=== PATIENT | male | born 1945 | race Caucasian/White ===

== ENCOUNTER → 2017-02-18 | Outpatient (CLI) | payer BC, OTHER ==
[~2017-02-18] VITALS: Ht 170.2 cm; Wt 88.2 kg
[~2017-02-18] MED LIST: ALL300 PO; ASPEC81 PO; ATV5 PO; CMD5 PO; CRDCD120 PO; FLM4 PO; METO100T14 PO; SIMV40TA2
[2017-02-18 15:21] VITALS: BP 114/77; PULSE 120; Ht 170.2 cm; Wt 88.2 kg
== END | disposition home or self-care (01) ==
LOC: C.NEUR 14:52
PROVIDERS: ATTEND Physician Assistant
DX: G47.33 Obstructive sleep apnea (adult) (pediatric) (principal); G47.31 Primary central sleep apnea

== ENCOUNTER → 2017-04-04 | Outpatient (CLI) | payer BC | END | disposition home or self-care (01) | LOC: C.RDSM 14:22 | PROVIDERS: ATTEND Physical Medicine & Rehabilitation Sports Medicine | DX: Z96.643 Presence of artificial hip joint, bilateral (principal) ==

== ENCOUNTER → 2017-04-05 | Outpatient (CLI) | payer BC ==
[2017-04-05 09:32] LABS: BASO % 0.3 %; BASO ABS # 0.01 K/uL (0-0.2); COMPLETE YES; EOS % 3.5 %; HEMATOCRIT 43.4 % (42-52); IG% 0.3 %; LYMPH % 31.9 %; LYMPH ABS # 1.26 K/uL (1.2-3.4); MEAN CELL VOLUME 93.5 fL (80-100); MEAN CORPUSCULAR HEMOGLOBIN 32.3 pg (25-34); MEAN CORPUSCULAR HGB CONC 34.6 g/dl (32-36); MEAN PLATELET VOLUME 10.1 fL (7.4-10.4); MONO % 9.9 %; NEUT % 54.1 %; PLATELET COUNT 139 K/uL (130-400); RED BLOOD COUNT 4.64 M/uL (4.7-6.1); WHITE BLOOD COUNT 3.95 K/uL (4.8-10.8)
[2017-04-05 09:42] LABS: ALT/SGPT 39 U/L (12-78); AST/SGOT 16 U/L (15-37); BLOOD UREA NITROGEN 19 mg/dl (7-18); BUN/CREATININE RATIO 12.1 (10-20); CARBON DIOXIDE 23 mmol/L (21-32); CHLORIDE 109 mmol/L (98-107); CHOLESTEROL 137 mg/dl (0-200); GLUCOSE 103 mg/dl (70-99); MAGNESIUM 2.2 mg/dl (1.8-2.4); POTASSIUM 4.3 mmol/L (3.5-5.1); SODIUM 143 mmol/L (136-145)
[2017-04-05 09:52] LABS: CHOLESTEROL/HDL RATIO 3.4; HDL CHOLESTEROL 40 mg/dl; LDL CHOLESTEROL CALCULATED 61 mg/dl; TRIGLYCERIDES 182 mg/dl (0-150); VERY LOW DENSITY LIPOPROT CALC 36 mg/dl
[2017-04-05 09:54] LABS: CALCIUM 8.9 mg/dl (8.5-10.1)
[2017-04-05 10:29] LABS: ESTIMATED AVERAGE GLUCOSE 108 mg/dl; HA1C FLAG Normal (Normal)
== END | disposition home or self-care (01) ==
LOC: C.LAB1850 07:27
PROVIDERS: ATTEND Internal Medicine
DX: E78.5 Hyperlipidemia, unspecified (principal)

== ENCOUNTER → 2017-09-09 | Outpatient (CLI) | payer BC ==
[2017-09-09 13:40] LABS: BASO % 0.5 %; BASO ABS # 0.02 K/uL (0-0.2); COMPLETE YES; EOS % 3.4 %; HEMATOCRIT 42.5 % (42-52); IG% 0.2 %; LYMPH % 14.8 %; LYMPH ABS # 0.65 K/uL (1.2-3.4); MEAN CELL VOLUME 97.5 fL (80-100); MEAN CORPUSCULAR HEMOGLOBIN 33.9 pg (25-34); MEAN CORPUSCULAR HGB CONC 34.8 g/dl (32-36); MEAN PLATELET VOLUME 10.4 fL (7.4-10.4); NEUT % 74.1 %; PLATELET COUNT 153 K/uL (130-400); RED BLOOD COUNT 4.36 M/uL (4.7-6.1)
[2017-09-09 14:02] LABS: ALT/SGPT 46 U/L (12-78); BLOOD UREA NITROGEN 13 mg/dl (7-18); BUN/CREATININE RATIO 8.9 (10-20); CALCIUM 8.8 mg/dl (8.5-10.1); CARBON DIOXIDE 22 mmol/L (21-32); CHLORIDE 106 mmol/L (98-107); CREATININE 1.49 mg/dl (0.60-1.40); GLUCOSE 150 mg/dl (70-99); POTASSIUM 4.8 mmol/L (3.5-5.1); SODIUM 140 mmol/L (136-145)
[2017-09-09 14:12] LABS: ALB/GLOB RATIO 1.2 (0.9-2); ALKALINE PHOSPHATASE 152 U/L (45-117); AST/SGOT 28 U/L (15-37)
== END | disposition home or self-care (01) ==
LOC: C.LABBC 09:44
PROVIDERS: ATTEND Internal Medicine Geriatric Medicine
DX: N18.9 Chronic kidney disease, unspecified (principal); I48.2 Chronic atrial fibrillation; F41.9 Anxiety disorder, unspecified

== ENCOUNTER → 2017-09-29 | Outpatient (CLI) | payer BC ==
[2017-09-29 10:55] LABS: ALT/SGPT 38 U/L (12-78); AST/SGOT 22 U/L (15-37); BLOOD UREA NITROGEN 17 mg/dl (7-18); BUN/CREATININE RATIO 12.3 (10-20); CALCIUM 8.7 mg/dl (8.5-10.1); CARBON DIOXIDE 24 mmol/L (21-32); CHLORIDE 109 mmol/L (98-107); CHOLESTEROL 112 mg/dl (0-200); CREATININE 1.38 mg/dl (0.60-1.40); GLUCOSE 99 mg/dl (70-99); POTASSIUM 4.4 mmol/L (3.5-5.1); SODIUM 140 mmol/L (136-145); TRIGLYCERIDES 173 mg/dl (0-150); VERY LOW DENSITY LIPOPROT CALC 35 mg/dl
[2017-09-29 11:00] LABS: HDL CHOLESTEROL 37 mg/dl; LDL CHOLESTEROL CALCULATED 40 mg/dl
== END | disposition home or self-care (01) ==
LOC: C.LABBC 09:02
PROVIDERS: ATTEND Internal Medicine
DX: E78.5 Hyperlipidemia, unspecified (principal); R74.8 Abnormal levels of other serum enzymes

== ENCOUNTER → 2017-11-14 | Outpatient (CLI) | payer BC ==
--- NOTE | 2017-11-14 16:13 | DIAGNOSTIC IMAGING REPORT ---
RIBS BILATERAL MIN 3 VIEWS CLINICAL HISTORY: W01.0XXA Fall from slip, trip, or [id number] trauma. Pain. COMPARISON STUDY: None FINDINGS: 1. Negative right ribs. 2. Negative left ribs. 3. No acute process of the chest. IMPRESSION: Negative study The above report was generated using voice recognition software. It may contain grammatical, syntax or spelling errors. Electronically signed by: Theodore Solomon M.D. 11/14/2017 4:12 PM Dictated Date/Time: 11/14/2017 4:10 PM
--- NOTE | 2017-11-14 16:22 | DIAGNOSTIC IMAGING REPORT ---
CHEST 2 VIEWS ROUTINE HISTORY: 72 years-old Male W01.0XXA Fall from slip, trip, or [id number] acute chest injury status post fall COMPARISON: None available TECHNIQUE: Rib radiographs of same day FINDINGS: Cardiac silhouette is mildly enlarged. Atherosclerosis of the aorta. Lungs are mildly hyperinflated. No pneumothorax, pleural effusion, focal airspace consolidation or overt pulmonary edema. Bones of the chest appear grossly intact. Degenerative changes are seen within the shoulders and spine. IMPRESSION: Cardiomegaly without acute process. The above report was generated using voice recognition software. It may contain grammatical, syntax or spelling errors. Electronically signed by: Ezekiel Larose M.D. 11/14/2017 4:21 PM Dictated Date/Time: 11/14/2017 4:19 PM
== END | disposition home or self-care (01) ==
LOC: C.RADBC 15:34
PROVIDERS: ATTEND Internal Medicine Geriatric Medicine
DX: R07.9 Chest pain, unspecified (principal); W01.0XXA Fall on same level from slipping, tripping and stumbling without subsequent striking against object, initial encounter

== ENCOUNTER → 2018-02-21 | Outpatient (CLI) | payer BC ==
[~2018-02-21] VITALS: Ht 170.2 cm; Wt 88.4 kg
[2018-02-21 14:39] VITALS: BP 95/61; PULSE 84; Ht 170.2 cm; Wt 88.4 kg
== END | disposition home or self-care (01) ==
LOC: C.NEUR 13:50
PROVIDERS: ATTEND Internal Medicine Pulmonary Disease
DX: G47.33 Obstructive sleep apnea (adult) (pediatric) (principal); G47.31 Primary central sleep apnea; I25.10 Atherosclerotic heart disease of native coronary artery without angina pectoris; I48.2 Chronic atrial fibrillation

== ENCOUNTER 2020-12-31 00:40 | Observation (INO) ==
--- NOTE | 2020-12-31 01:10 | Emergency Department Note ---
Impression & Plan Syncope and collapse, Amnesia ED Provider Note Name: EMILY MEAD Age: 75 Sex: M Arrives Via: Walk-In Informant: Patient, ED Provider: Clemente Alcaraz MD Chief Complaint: fall Impression: Syncope and Collapse Amnesia Medical Decision Makin yr old pleasant male with history afib on eliquis along with dlp, ckd, bph, anxiety, isabel arrives after a 1 hour episode of memory loss following syncope/collapse on the stairs. No evidence of head injury on exam though with eliquis use ct indicated which was negative. He has no neuro deficits and memory has returned on arrival thus no indication for stroke alert. EKG with afib though no acs. He is no sob, cp, hypoxia nor tachy thus I feel PE unlikely, especially given his eliquis use. Labs unremarkable including negative trop. He admits ETOH use consistent with lab findings. Unclear etiology of fall/syncope though would suspect some orthostatic hypotension, though this doesn't qutie explain memory issues for an hour after initial event. Will bring in for further monitoring and evaluation. Prior Medical Record and Triage/Nursing Notes reviewed by Me Additional history obtained from chart and Differentials:Vasovagal event, dehydration, infection, hypoglycemia, electrolyte abnormalities, cardiac sources, intracerebral event, pulmonary embolism, seizure, toxicologic, neurologic, as well as other pathologies. Vital Signs: reviewed and remarkable for no significant abnormalities Interventions: none Labs:Reviewed and remarkable for +etoh Imaging:[facility] Radiologist interpretation reviewed by me: ct head/cervical no acute findings X ray results are stated below per my interpretation: Chest: 1 view: No infiltrate, no effusion, normal cardiac border. Pelvis: Bilateral hip replacements intact, no acute fracture/dislocation EKG:Per My Interpretation: Indication Syncope: Afib 84 bpm, qtc 451. No Ischemia. Compared to EKG 06/22/12, no significant changes. Cardiac/Tele Monitoring: Cardiac Monitoring: An Order was placed for continuous cardiac monitoring. The monitor shows a rate of 80 with a afib rhythm. Consults:Dr Nessa ALBARADO Hospitalist Plan: Disposition:Hospitalization. Condition: Good Prescriptions:none History of Present Illness:75 yr old male arrives for evaluation of syncope. Patient went to bed a bit later than and she notes she hear a loud commotion at stairs. She immeidately went to stairs and found at bottom of them. It was apparent that he had fallen down entire flight, though no evidence of head injury by exam. She notes he was awake but confused on evaluating him. He does not remember falling though states he vaguely remembers walking up stairs. Per he had amnesia to events today for about 1 hr before his member started coming back. He was unable to remember what his normal medications were at that time nor what he had done that day. He had small abrasion to right heal that she placed abx ointment on and dressed. Given continued confusion brought him to ED. She notes he is now back to his normal baseline. Patient admits etoh earlier in evening. Currently he notes some mild right chest soreness otherwise no discomfort. Denies headache, neck pain, cp, nausea, vomiting, sob, back pain, abdominal pain, urinary symptoms, diarrhea, leg swelling, rashes, nor other symptoms. Denies falls nor previous syncope. Is on eliquis for afib. No medications taken regarding fall/injury. Nothing makes better nor worse. ROS: See above HPI for pertinent positives & negatives. A total of 10 systems reviewed and were otherwise negative. Past Medical History:Afib, BPH, ISAEBL, Anxiety, CAD, Hyperlipidemia Past Surgical History:Bilateral hips, Appendectomy Family History:CAD, CVA, HTN Social History:lives with , plays pickleball, drinks etoh nightly Home Medications:See Below Allergies:PNC, Codeine Vitals:Blood Pressure: 115/71, Pulse 87, RR 18, T 35.6C, O2 95% on RA Physical Exam: GENERAL: Patient is tired appearing and in mininal distress. EYES: No scleral icterus, unremarkable pupils. ENT: Mucous membranes moist, no nasal congestion. HEAD: AT/NC CHEST: TTP very mild right anterior ribs NECK: No masses appreciated, nomeningismus, trachea is midline. RESPIRATORY: No dyspnea. Clear to auscultation and equal bilaterally. No wheeze, no rhonchi. CARDIOVASCULAR: Regular rate and rhythm.No murmurs, rubs, gallops appreciated. GASTROINTESTINAL: Abdomen soft, non-tender, no peritonitis.Bowel sounds positive.No masses appreciated. BACK: No midline tenderness, no CVA tenderness EXTREMITIES: Normal motion all extremities, no cyanosis, no edema. NEUROLOGIC: Alert and oriented, no acute motor or sensory deficits, no focal weakness, cranial nerves grossly intact. SKIN: Abrasion right heal, No rash, no jaundice, no diaphoresis. PSYCH: Appropriate GCS: 15 ED Course: Times/Reassessments: Stable, neuro intact, afib on monitor throughout without other findings Clemente Alcaraz MD Past Med/Surg History Medical History (Updated 12/31/20 @ 04:04 by Clemente Alcaraz MD) Afib Anxiety Benign prostatic hyperplasia Central sleep apnea Chronic kidney disease Cigar smoker Elevated alkaline phosphatase level Ganglion cyst Gout, joint Hyperlipidemia LDL goal <70 Leukopenia Permanent atrial fibrillation Skin cancer, basal cell Vitamin D deficiency Surgical History History of arthroscopic knee surgery S/P appendectomy S/P bilateral hip replacements S/P vasectomy Family History Heart disease Mother Hypertension Mother Stroke Mother Social History Smoking Status: Never smoker Hx Alcohol Use: Yes Alcohol Intake Frequency Comment: 20 per week Hx Substance Use: No Preferred Language: Latvian marital status: current occupational status: 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 have: 2 Feels Safe at Home: Yes Allergies Allergies Allergy/AdvReac Type Severity Reaction Status Date / Time Penicillins Allergy Unknown RASH Verified 12/31/20 01:06 codeine AdvReac Unknown NAUSEA & Verified 12/31/20 01:06 VOMITING Home Meds Home Medications Medication Instructions Recorded Confirmed cetirizine 10 mg tablet 10 mg PO HS tab 07/17/19 12/31/20 cholecalciferol (vitamin D3) 50 3,000 units PO QAM cap 07/17/19 12/31/20 mcg (2,000 unit) capsule acetaminophen [Tylenol Extra 1,000 mg PO Q6H PRN 11/24/19 12/31/20 Strength] Previous Rx's Medication Instructions Recorded escitalopram oxalate 20 mg tablet 20 mg PO QAM #90 tab 07/14/20 metoprolol succinate 25 mg 25 mg PO .COMPLEX #225 tab 10/24/20 tablet,extended release 24 hr apixaban 5 mg tablet 5 mg PO BID #180 tab 11/04/20 allopurinol 300 mg tablet 150 mg PO QAM #45 tab 11/10/20 atorvastatin 40 mg tablet 40 mg PO HS #90 tab 11/10/20 tamsulosin 0.4 mg capsule 0.4 mg PO HS #90 cap 11/21/20 diltiazem HCl 120 mg 120 mg PO QAM #90 cap 12/09/20 capsule,extended release 24 hr Results & Data (ED) Vital Signs Vital Signs - 24 hr 12/31/20 00:41 12/31/20 00:42 12/31/20 00:54 Temperature 35.6 C L Temperature Source Temporal Artery Scan Pulse Rate 87 84 Pulse Rate from SpO2 Sensor 83 Respiratory Rate 16 18 13 Respiratory Effort / Characteristics Non-Labored Spontaneous Respiratory Depth Normal Normal Respiratory Pattern Regular Blood Pressure 115/71 120/74 Blood Pressure Mean 85 89 Blood Pressure Position Sitting Pulse Oximetry 95 94 Oxygen Delivery Method Room Air Room Air Room Air Sepsis Recent Fever Within 48 Hours No Sepsis New/Unexplained Change in Mental Status No Sepsis Action Taken by Nursing No Action Required 12/31/20 02:14 12/31/20 02:30 12/31/20 03:00 Temperature Temperature Source Pulse Rate 83 81 92 H Pulse Rate from SpO2 Sensor 82 84 87 Respiratory Rate 21 17 17 Respiratory Effort / Characteristics Respiratory Depth Respiratory Pattern Blood Pressure 98/51 L 105/70 117/59 L Blood Pressure Mean 66 81 78 Blood Pressure Position Pulse Oximetry 95 97 94 Oxygen Delivery Method Room Air Room Air Room Air Sepsis Recent Fever Within 48 Hours Sepsis New/Unexplained Change in Mental Status Sepsis Action Taken by Nursing 12/31/20 03:30 12/31/20 04:00 Temperature Temperature Source Pulse Rate 81 80 Pulse Rate from SpO2 Sensor 83 79 Respiratory Rate 14 17 Respiratory Effort / Characteristics Respiratory Depth Respiratory Pattern Blood Pressure 107/67 112/77 Blood Pressure Mean 80 88 Blood Pressure Position Pulse Oximetry 96 94 Oxygen Delivery Method Room Air Room Air Sepsis Recent Fever Within 48 Hours Sepsis New/Unexplained Change in Mental Status Sepsis Action Taken by Nursing Laboratory Data Result diagrams: 12/31/20 01:05 12/31/20 01:05 Lab Results 12/31/20 12/31/20 12/31/20 Range/Units 01:05 01:05 01:05 WBC 4.41 L (4.8-10.8) K/uL RBC 4.01 L (4.7-6.1) M/uL Hgb 14.1 (14.0-18.0) g/dL Hct 38.9 L (42-52) % MCV 97.0 (80-100) fL MCH 35.2 H (25-34) pg MCHC 36.2 H (32-36) g/dL RDW Std Deviation 45.7 (36.4-46.3) fL RDW Coeff of Stefany 12.9 (11.5-14.5) % Plt Count 133 (130-400) K/uL MPV 9.6 (7.4-10.4) fL Immature Gran % (Auto) 0.2 % Neut % (Auto) 60.3 % Lymph % (Auto) 25.2 % [place] % (Auto) 11.6 % Eos % (Auto) 2.7 % Baso % (Auto) 0.0 % Neut # (Auto) 2.66 (1.4-6.5) K/uL Lymph # (Auto) 1.11 L (1.2-3.4) K/uL [place] # (Auto) 0.51 (0.11-0.59) K/uL Eos # (Auto) 0.12 (0-0.5) K/uL Baso # (Auto) 0.00 (0-0.2) K/uL Immature Gran # (Auto) 0.01 (0.00-0.02) K/uL PT 10.3 (9.0-12.0) Seconds INR 1.0 (0.9-1.1) APTT 29.3 (21.0-31.0) Seconds PTT Ratio 1.1 Sodium 140 (136-145) mmol/L Potassium 4.0 (3.5-5.1) mmol/L Chloride 108 H (98-107) mmol/L Carbon Dioxide 23 (21-32) mmol/L Anion Gap 9.0 (3-11) BUN 25 H (7-18) mg/dl Creatinine 1.40 (0.6-1.4) mg/dl Est Cr Clr Drug Dosing 49.2 ml/min Est GFR ( Amer) 56.6 Est GFR (Non-Af Amer) 48.8 BUN/Creatinine Ratio 17.7 (10-20) Glucose 105 H (70-99) mg/dl Calcium 8.5 (8.5-10.1) mg/dl Magnesium 1.9 (1.8-2.4) mg/dl Total Bilirubin 0.6 (0.2-1) mg/dl Direct Bilirubin 0.1 (0-0.2) mg/dl AST 24 (15-37) U/L ALT 43 (12-78) U/L Alkaline Phosphatase 105 (45-117) U/L Troponin I < 0.015 (0-0.045) ng/ml Total Protein 6.7 (6.4-8.2) gm/dl Albumin 3.6 (3.4-5.0) gm/dl Urine Color Urine Appearance (Clear) Urine pH (4.5-7.5) Ur Specific [place] (1.000-1.030) Urine Protein (Negative) Urine Glucose (UA) (Negative) Urine Ketones (Negative) Urine Blood (Negative) Urine Nitrite (Negative) Urine Bilirubin (Negative) Urine Urobilinogen (Negative) Ur Leukocyte Esterase (Negative) Ethyl Alcohol mg/dL (0-3) mg/dl COVID-19 Eval Order SARS-CoV-2, RNA, NAAT (NEGATIVE) 12/31/20 12/31/20 12/31/20 Range/Units 01:23 01:44 01:44 WBC (4.8-10.8) K/uL RBC (4.7-6.1) M/uL Hgb (14.0-18.0) g/dL Hct (42-52) % MCV (80-100) fL MCH (25-34) pg MCHC (32-36) g/dL RDW Std Deviation (36.4-46.3) fL RDW Coeff of Stefany (11.5-14.5) % Plt Count (130-400) K/uL MPV (7.4-10.4) fL Immature Gran % (Auto) % Neut % (Auto) % Lymph % (Auto) % [place] % (Auto) % Eos % (Auto) % Baso % (Auto) % Neut # (Auto) (1.4-6.5) K/uL Lymph # (Auto) (1.2-3.4) K/uL [place] # (Auto) (0.11-0.59) K/uL Eos # (Auto) (0-0.5) K/uL Baso # (Auto) (0-0.2) K/uL Immature Gran # (Auto) (0.00-0.02) K/uL PT (9.0-12.0) Seconds INR (0.9-1.1) APTT (21.0-31.0) Seconds PTT Ratio Sodium (136-145) mmol/L Potassium (3.5-5.1) mmol/L Chloride (98-107) mmol/L Carbon Dioxide (21-32) mmol/L Anion Gap (3-11) BUN (7-18) mg/dl Creatinine (0.6-1.4) mg/dl Est Cr Clr Drug Dosing ml/min Est GFR ( Amer) Est GFR (Non-Af Amer) BUN/Creatinine Ratio (10-20) Glucose (70-99) mg/dl Calcium (8.5-10.1) mg/dl Magnesium (1.8-2.4) mg/dl Total Bilirubin (0.2-1) mg/dl Direct Bilirubin (0-0.2) mg/dl AST (15-37) U/L ALT (12-78) U/L Alkaline Phosphatase (45-117) U/L Troponin I (0-0.045) ng/ml Total Protein (6.4-8.2) gm/dl Albumin (3.4-5.0) gm/dl Urine Color Urine Appearance (Clear) Urine pH (4.5-7.5) Ur Specific [place] (1.000-1.030) Urine Protein (Negative) Urine Glucose (UA) (Negative) Urine Ketones (Negative) Urine Blood (Negative) Urine Nitrite (Negative) Urine Bilirubin (Negative) Urine Urobilinogen (Negative) Ur Leukocyte Esterase (Negative) Ethyl Alcohol mg/dL 129.0 H (0-3) mg/dl COVID-19 Eval [facility] SARS-CoV-2, RNA, NAAT NEGATIVE (NEGATIVE) 12/31/20 Range/Units 02:05 WBC (4.8-10.8) K/uL RBC (4.7-6.1) M/uL Hgb (14.0-18.0) g/dL Hct (42-52) % MCV (80-100) fL MCH (25-34) pg MCHC (32-36) g/dL RDW Std Deviation (36.4-46.3) fL RDW Coeff of Stefany (11.5-14.5) % Plt Count (130-400) K/uL MPV (7.4-10.4) fL Immature Gran % (Auto) % Neut % (Auto) % Lymph % (Auto) % [place] % (Auto) % Eos % (Auto) % Baso % (Auto) % Neut # (Auto) (1.4-6.5) K/uL Lymph # (Auto) (1.2-3.4) K/uL [place] # (Auto) (0.11-0.59) K/uL Eos # (Auto) (0-0.5) K/uL Baso # (Auto) (0-0.2) K/uL Immature Gran # (Auto) (0.00-0.02) K/uL PT (9.0-12.0) Seconds INR (0.9-1.1) APTT (21.0-31.0) Seconds PTT Ratio Sodium (136-145) mmol/L Potassium (3.5-5.1) mmol/L Chloride (98-107) mmol/L Carbon Dioxide (21-32) mmol/L Anion Gap (3-11) BUN (7-18) mg/dl Creatinine (0.6-1.4) mg/dl Est Cr Clr Drug Dosing ml/min Est GFR ( Amer) Est GFR (Non-Af Amer) BUN/Creatinine Ratio (10-20) Glucose (70-99) mg/dl Calcium (8.5-10.1) mg/dl Magnesium (1.8-2.4) mg/dl Total Bilirubin (0.2-1) mg/dl Direct Bilirubin (0-0.2) mg/dl AST (15-37) U/L ALT (12-78) U/L Alkaline Phosphatase (45-117) U/L Troponin I (0-0.045) ng/ml Total Protein (6.4-8.2) gm/dl Albumin (3.4-5.0) gm/dl Urine Color Yellow Urine Appearance Clear (Clear) Urine pH 5.5 (4.5-7.5) Ur Specific [place] 1.015 (1.000-1.030) Urine Protein Negative (Negative) Urine Glucose (UA) Negative (Negative) Urine Ketones Trace H (Negative) Urine Blood Negative (Negative) Urine Nitrite Negative (Negative) Urine Bilirubin Negative (Negative) Urine Urobilinogen Negative (Negative) Ur Leukocyte Esterase Negative (Negative) Ethyl Alcohol mg/dL (0-3) mg/dl COVID-19 Eval Order SARS-CoV-2, RNA, NAAT (NEGATIVE) Discharge Plan Visit Data Chief Complaint: Fall Stated Complaint: FELL DOWN STAIRS-DOES NOT REMEMBER ANYTHING ED Provider: Clemente Alcaraz Discharge Problem: Syncope and collapse, Amnesia Forms Stand Alone Forms: My [facility] Prescriptions Prescriptions: No Action cetirizine [Zyrtec] 10 mg tablet 10 mg PO HS RF: 0 cholecalciferol (vitamin D3) 2,000 unit capsule 3,000 units PO QAM RF: 0 escitalopram oxalate 20 mg tablet 20 mg PO QAM Qty: 90 RF: 3 metoprolol succinate 25 mg tablet extended release 24 hr 25 mg PO .COMPLEX Qty: 225 RF: 3 apixaban 5 mg tablet 5 mg PO BID Qty: 180 RF: 3 allopurinol 300 mg tablet 150 mg PO QAM Qty: 45 RF: 3 atorvastatin 40 mg tablet 40 mg PO HS Qty: 90 RF: 3 tamsulosin 0.4 mg capsule 0.4 mg PO HS Qty: 90 RF: 3 diltiazem HCl [Cartia XT] 120 mg capsule,extended release 24hr 120 mg PO QAM Qty: 90 RF: 3 acetaminophen [Tylenol Extra Strength] 500 mg Tablet 1,000 mg PO Q6H PRN (Reason: Pain) RF: 0
[2020-12-31 01:20] LABS: Eosinophils # (auto) 0.12 K/uL (0-0.5); Eosinophils % (auto) 2.7 %; Hematocrit (blood only) 38.9 % (42-52); Hemoglobin 14.1 g/dL (14.0-18.0); Immature Granulocytes # (auto) 0.01 K/uL (0.00-0.02); Immature Granulocytes % (auto) 0.2 %; Lymphocytes # (auto) 1.11 K/uL (1.2-3.4); Lymphocytes % (auto) 25.2 %; Mean Corpuscular Hemoglobin 35.2 pg (25-34); Mean Corpuscular Hgb Conc 36.2 g/dL (32-36); Mean Platelet Volume 9.6 fL (7.4-10.4); Monocytes # (auto) 0.51 K/uL (0.11-0.59); Monocytes % (auto) 11.6 %; Neutrophils # (auto) 2.66 K/uL (1.4-6.5); Neutrophils % (auto) 60.3 %; Platelet Count 133 K/uL (130-400); RDW Coefficient of Variation 12.9 % (11.5-14.5); RDW Standard Deviation 45.7 fL (36.4-46.3); Red Blood Count 4.01 M/uL (4.7-6.1); White Blood Count 4.41 K/uL (4.8-10.8)
[2020-12-31 01:30] LABS: Partial Thromboplastin Ratio 1.1; Partial Thromboplastin Time 29.3 Seconds (21.0-31.0); Prothrombin Time 10.3 Seconds (9.0-12.0)
[2020-12-31 01:48] LABS: Alanine Aminotransferase 43 U/L (12-78); Albumin Level 3.6 gm/dl (3.4-5.0); Aspartate Aminotransferase 24 U/L (15-37); BUN Creatinine Ratio 17.7 (10-20); Bilirubin Direct 0.1 mg/dl (0-0.2); Blood Urea Nitrogen 25 mg/dl (7-18); Calcium 8.5 mg/dl (8.5-10.1); Carbon Dioxide 23 mmol/L (21-32); Chloride 108 mmol/L (98-107); Creatinine Clr Calc Pharmacy 49.2 ml/min; Est GFR (African American) 56.6; Est GFR (Non-African American) 48.8; Glucose 105 mg/dl (70-99); Magnesium 1.9 mg/dl (1.8-2.4); Sodium 140 mmol/L (136-145)
[2020-12-31 01:53] LABS: Alkaline Phosphatase 105 U/L (45-117); Bilirubin,Total 0.6 mg/dl (0.2-1); Total Protein 6.7 gm/dl (6.4-8.2); Troponin I < 0.015 ng/ml (0-0.045)
[2020-12-31 02:28] LABS: Appearance Urine Clear (Clear); Bilirubin Urine Negative (Negative); Blood Urine Negative (Negative); Color Urine Yellow; Glucose Urine UA Negative (Negative); Ketones Urine Trace (Negative); Leukocyte Esterase Urine Negative (Negative); Nitrite Urine Negative (Negative); Protein Urine Negative (Negative); Specific Gravity Urine 1.015 (1.000-1.030); Urobilinogen Urine Negative (Negative); pH Urine 5.5 (4.5-7.5)
--- NOTE | 2020-12-31 03:23 | History & Physical Report ---
Date of Service December 31, 2020 Assessment & Plan (1) Alcohol intoxication: 75 yo M with hx gout, sleep apnea, afib, CKD, OA admitted for alcohol intoxication and fall. Fall - secondary to alcohol intoxication - had a total of 6 shots of vodka around 5 pm, followed by 3 10-12 ounce full glasses of box wine later in the evening - he remembers getting up to go up the stairs but does not remember tripping/falling down. He then recalls being upstairs but does not remember how he got there - states he did not hit his head when she found him. CT head negative - XR pelvic and Chest negative for fracture, pneumothorax Alcohol Dependence, precontemplative - CAGE positive: considers cutting back, annoyed by asked about drinking habits - acknowledges that his children call him a functional alcoholic - states he is a 4 on scale for change (0 = will not consider cutting back, 10 = will cut back now) - says he would be a 5 if I told him he would within the year due to his drinking - believes that a reasonable goal for cutting back would be having 2 days per week that he does not drink - Discussed with him that alcohol abuse to this level while on a blood thinner is incredibly dangerous especially with falls, and that the alcohol will likely cause him to have kidney/liver damage eventually or contribute to him having a seriously damaging fall. He agreed that he "should probably cut back" but does not give the impression of being invested. Alcohol intoxication - AWSS protocol - Hg 14, MCV normal - Vit B12 and folate level ordered - banana bag x 1, daily thiamine, folate, b12 - ETOH level in ER 189 DVT ppx: on eliquis 5 bid FEN/GI: cardiac diet Full Code Dispo: Med Surg (2) Gout, joint: (3) Complex sleep apnea syndrome: (4) Benign prostatic hyperplasia: (5) Chronic kidney disease: (6) Permanent atrial fibrillation: (7) Osteoarthritis: (8) Non-occlusive coronary artery disease: History of Present Illness Primary Care Provider: Jeyson Cee MD Allergies Allergy/AdvReac Type Severity Reaction Status Date / Time Penicillins Allergy Unknown RASH Verified 12/31/20 01:06 codeine AdvReac Unknown NAUSEA & Verified 12/31/20 01:06 VOMITING Home Medications Medication Instructions Recorded Confirmed Type cetirizine 10 mg tablet 10 mg PO HS tab 07/17/19 12/31/20 History cholecalciferol (vitamin D3) 50 3,000 units PO QAM cap 07/17/19 12/31/20 History mcg (2,000 unit) capsule acetaminophen [Tylenol Extra 1,000 mg PO Q6H PRN 11/24/19 12/31/20 History Strength] escitalopram oxalate 20 mg tablet 20 mg PO QAM #90 tab 07/14/20 12/31/20 Rx metoprolol succinate 25 mg 25 mg PO .COMPLEX #225 tab 10/24/20 12/31/20 Rx tablet,extended release 24 hr apixaban 5 mg tablet 5 mg PO BID #180 tab 11/04/20 12/31/20 Rx allopurinol 300 mg tablet 150 mg PO QAM #45 tab 11/10/20 12/31/20 Rx atorvastatin 40 mg tablet 40 mg PO HS #90 tab 11/10/20 12/31/20 Rx tamsulosin 0.4 mg capsule 0.4 mg PO HS #90 cap 11/21/20 12/31/20 Rx diltiazem HCl 120 mg 120 mg PO QAM #90 cap 12/09/20 12/31/20 Rx capsule,extended release 24 hr Past Med/Surg History Medical History (Updated 12/31/20 @ 04:24 by Angela Early MD) Afib Alcohol dependence Anxiety Benign prostatic hyperplasia Central sleep apnea Chronic kidney disease Cigar smoker Elevated alkaline phosphatase level Ganglion cyst Gout, joint Hyperlipidemia LDL goal <70 Leukopenia Permanent atrial fibrillation Skin cancer, basal cell Vitamin D deficiency Surgical History History of arthroscopic knee surgery S/P appendectomy S/P bilateral hip replacements S/P vasectomy Family History Heart disease Mother Hypertension Mother Stroke Mother Social History Smoking Status: Light tobacco smoker Second Hand Exposure: No; Hx Alcohol Use: Yes Alcohol type: beer, wine and hard liquor Alcohol Intake Frequency Comment: 20 per week Hx Substance Use: No Preferred Language: Armenian Communication Ability: Effective C 40A Crew Chief Required: No Beliefs That Will Affect Care: None marital status: Current Living Situation: Spouse 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 occupational status: 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 Assessment and Plan: Fall secondary to alcohol intoxication Imaging studies negative for fracture Monitor for any new symptoms Alcohol dependency- Cessation counseling AWSS protocol Thiamine 100 mg p.o. daily Folic acid 1 mg p.o. daily Nephrocaps p.o. twice daily IV fluids Obstructive sleep apnea- as needed at bedtime Remaining orders and notations as noted Resident Activity Tracking Resident Involvement: Resident Care Provided Care Provided: Adult Hospital Medicine
[2020-12-31] MEDS ORDERED: LORazepam 2 MG/4 ML VIAL IV PRN (04:49)
[2020-12-31] MEDS ORDERED: ATIVAN IV ALCOHOL WITHDRAWL IV PRN (04:49)
[2020-12-31] MEDS ORDERED: LORazepam 1 MG/2 ML VIAL IV PRN ×2 (04:49)
[2020-12-31] MEDS ORDERED: LORazepam 3 MG/6 ML VIAL IV PRN (04:49)
[2020-12-31] MEDS ORDERED: LORazepam 1 MG TAB PO PRN ×2 (04:49)
[2020-12-31] MEDS ORDERED: MULTI-VITAMIN INFUSION 10 ML, THIAMINE HCL 100 MG, FOLIC ACID 1 MG in SODIUM CHLORIDE 0... IV ONE (05:30)
[2020-12-31 05:39] LABS: Eosinophils # (auto) 0.09 K/uL (0-0.5); Eosinophils % (auto) 2.6 %; Hematocrit (blood only) 38.4 % (42-52); Immature Granulocytes # (auto) 0.01 K/uL (0.00-0.02); Immature Granulocytes % (auto) 0.3 %; Lymphocytes # (auto) 0.74 K/uL (1.2-3.4); Lymphocytes % (auto) 21.6 %; Mean Corpuscular Hemoglobin 35.2 pg (25-34); Mean Corpuscular Hgb Conc 36.5 g/dL (32-36); Mean Corpuscular Volume 96.5 fL (80-100); Mean Platelet Volume 9.6 fL (7.4-10.4); Monocytes # (auto) 0.27 K/uL (0.11-0.59); Monocytes % (auto) 7.9 %; Neutrophils # (auto) 2.31 K/uL (1.4-6.5); Neutrophils % (auto) 67.6 %; Platelet Count 114 K/uL (130-400); RDW Coefficient of Variation 12.7 % (11.5-14.5); RDW Standard Deviation 44.6 fL (36.4-46.3); Red Blood Count 3.98 M/uL (4.7-6.1); White Blood Count 3.42 K/uL (4.8-10.8)
[2020-12-31 05:49] LABS: Partial Thromboplastin Ratio 1.1; Partial Thromboplastin Time 29.9 Seconds (21.0-31.0); Prothrombin Time 10.4 Seconds (9.0-12.0)
[2020-12-31 05:57] LABS: Albumin Level 3.6 gm/dl (3.4-5.0); BUN Creatinine Ratio 17.4 (10-20); Calcium 8.4 mg/dl (8.5-10.1); Creatinine Clr Calc Pharmacy 53.4 ml/min; Est GFR (Non-African American) 54.4; Potassium 4.3 mmol/L (3.5-5.1)
[2020-12-31 05:59] LABS: Albumin Globulin Ratio 1.2 (0.9-2); Bilirubin,Total 0.7 mg/dl (0.2-1); Globulin 2.9 gm/dl (2.5-4.0); Total Protein 6.5 gm/dl (6.4-8.2)
--- NOTE | 2020-12-31 06:50 | XRay Report ---
XR pelvis 1-2V routine HISTORY: 75 years-old Male fall down stairs acute pelvic pain status post fall COMPARISON: Pelvis and hip radiographs 06/23/2020 TECHNIQUE: AP view of the pelvis FINDINGS: Bilateral hip total joint arthroplasties without evidence of hardware complication. Demineralized tim earance of the bones. Surgical clips project over the scrotum. No acute fracture or dislocation. Unre markable soft tissues. IMPRESSION: No acute fracture. ACT 112: Negative or not required by law. The above report was generated using voice recognition software. It may contain grammatical, syntax o r spelling errors. Electronically signed by: Ezekiel Larose M.D. 12/31/2020 6:49 AM
--- NOTE | 2020-12-31 07:11 | CT Scan Report ---
CT SCAN OF THE CERVICAL SPINE CLINICAL HISTORY: Trauma. Fall down stairs. COMPARISON STUDY: No priors. TECHNIQUE: CT scan of the cervical spine is performed from the skull base to the upper thoracic spine . Images are reviewed in the axial, sagittal, and coronal planes. IV contrast was not administered fo r this examination. A dose lowering technique was utilized adhering to the principles of ALARA. CT DOSE: 998.56 mGy.cm FINDINGS: Skeletal structures: The skeletal structures are osteopenic. There is no evidence of fracture or subl uxation involving the cervical spine. Vertebral body height and alignment are maintained. There is st raightening of the cervical lordosis. Anterior osteophytes are seen throughout. The odontoid process and lateral masses are intact. The atlantoaxial articulation is preserved noting productive degenerat leelee change. The spinous processes appear intact. There is [id number] multilevel cervical spondy losis. Uncovertebral and facet arthropathy contribute sterile foraminal narrowing at several levels. Intervertebral discs: There is advanced disc space narrowing at C5-C6. Mild disc space narrowing seen at C4-C5 and C6-C7. Central canal: Posterior disc osteophyte complex at C5-C6 may contribute to acquired compromise of th e central canal. Soft tissues: The prevertebral and paraspinous soft tissues are within normal limits. Calvarium: The visualized calvarium at the skull base appears intact. Brain parenchyma: Partially visualized brain parenchyma at the skull base is within normal limits. Sinuses and mastoids: Trace mucosal thickening is noted in the maxillary antra. The mastoid air cells are well pneumatized. IMPRESSION: 1. There is no evidence of fracture or subluxation involving the cervical spine. 2. Osteopenia and spondylotic change as above. ACT 112: Negative or not required by law. Electronically signed by: Sebastián Hubbard M.D. 12/31/2020 7:10 AM
--- NOTE | 2020-12-31 07:18 | CT Scan Report ---
CT head/brain wo con CLINICAL HISTORY: 75 years-old Male with fall down stairs. Acute head injury status post fall TECHNIQUE: Multiple axial CT images of the head were obtained without contrast. A dose lowering tech nique was utilized adhering to the principles of ALARA. COMPARISON: CT cervical spine of same day FINDINGS: No acute intracranial hemorrhage, midline shift, intracranial mass, hydrocephalus, territorial ischem ia or abnormal extra-axial collection. Age-related involutional changes with ex vacuo ventriculomegal y. Patchy white matter hypodensities suggest chronic microvascular ischemic disease. Senescent calcif ications of the basal ganglia with cerebral vascular calcifications. The calvarium is intact. Mastoid air cells are clear. Partial right-sided ethmoidectomy with right-s ided maxillary antrostomy. Near complete opacification of the right frontal sinus. Unremarkable soft tissues. Prior left-sided wedge replacement. IMPRESSION: No acute intracranial abnormality or calvarial fracture. ACT 112: Negative or not required by law. The above report was generated using voice recognition software. It may contain grammatical, syntax o r spelling errors. Electronically signed by: Ezekiel Larose M.D. 12/31/2020 7:17 AM
--- NOTE | 2020-12-31 07:53 | XRay Report ---
XR chest 1V portable HISTORY: 75 years-old Male trauma, fall acute chest trauma status post fall COMPARISON: Chest radiographs 11/14/2017 TECHNIQUE: Portable AP view of the chest FINDINGS: Cardiac silhouette is moderately enlarged. There is no pneumothorax, pleural effusion, airspace conso lidation or overt pulmonary edema. The bones of the chest appear grossly intact. IMPRESSION: Cardiomegaly without acute process. ACT 112: Negative or not required by law. The above report was generated using voice recognition software. It may contain grammatical, syntax o r spelling errors. Electronically signed by: Ezekiel Larose M.D. 12/31/2020 7:51 AM
[2020-12-31 08:14] LABS: Folate (Folic Acid) 9.1 ng/ml (>5.38)
[2020-12-31 08:32] LABS: Bilirubin Direct 0.2 mg/dl (0-0.2)
[2020-12-31] MEDS ORDERED: allopurinoL 300 MG TAB PO SCH (09:00)
[2020-12-31] MEDS ORDERED: dilTIAZem HCL 120 MG CAPCR PO SCH (09:00)
[2020-12-31] MEDS ORDERED: APIXABAN 5 MG TABLET PO SCH (09:00)
[2020-12-31] MEDS ORDERED: CHOLECALCIFEROL 1,000 UNITS 25 MCG TAB PO SCH (09:00)
[2020-12-31] MEDS ORDERED: METOPROLOL SUCC 25MG EXT REL TAB PO SCH ×2 (09:00→21:00)
[2020-12-31] MEDS ORDERED: ESCITALOPRAM OXALATE 20 MG TAB PO SCH (09:00)
--- NOTE | 2020-12-31 12:24 | XRay Report ---
LEFT KNEE 3 VIEWS CLINICAL HISTORY: Left knee pain. FINDINGS: AP, lateral, and sunrise views of the left knee are obtained. No prior studies are availabl e for comparison at the time of dictation. The skeletal structures are osteopenic. No fracture is see n. There is mild to moderate tricompartmental degenerative joint space narrowing, greatest at the pat ellofemoral articulation. There are small marginal osteophytes, patellar enthesophytes, and degenerat leelee beaking of the tibial spine. No joint effusion is identified. The overlying soft tissues are with in normal limits. IMPRESSION: No acute bony abnormality is identified. Electronically signed by: Sebastián Hubbard M.D. 12/31/2020 12:23 PM
--- NOTE | 2020-12-31 16:07 | Electrocardiogram Report ---
Test Reason : Blood Pressure : / mmHG Vent. Rate : 084 BPM Atrial Rate : 084 BPM P-R Int : 292 ms QRS Dur : 092 ms QT Int : 382 ms P-R-T Axes : 021 024 013 degrees QTc Int : 451 ms Atrial fibrillation Abnormal ECG When compared with ECG of 22-JUN-2012 13:58, No significant change Confirmed by Jasper Crsitobal ([id number]) on 12/31/2020 4:07:21 PM Referred By: REFERRED SELF Confirmed By:Jasper Cristobal
[2020-12-31] MEDS ORDERED: ATORVASTATIN 40 MG TAB PO SCH (21:00)
[2020-12-31] MEDS ORDERED: CETIRIZINE HCL 10 MG TABLET PO SCH (21:00)
[2020-12-31] MEDS ORDERED: TAMSULOSIN HCL 0.4 MG CAP PO SCH (21:00)
--- NOTE | 2021-01-01 05:25 | Billing Data ---
Date of Service January 01, 2021 Coding Level of Care Code 53111 OBS Care - Level 3
[2021-01-01] MEDS ORDERED: FOLIC ACID 1 MG in SYRINGE 9.8 ML IV SCH (09:00)
[2021-01-01] MEDS ORDERED: THIAMINE HCL 100 MG in SYRINGE 9 ML IV SCH (09:00)
--- NOTE | 2021-01-07 09:37 | Discharge Summary ---
Date of Service December 31, 2020 Principal Diagnosis Alcohol intoxication Discharge Exam Constitutional WD/WN, vitals as above Neck trachea midline, no thyromegaly Respiratory normal respiratory effort, lungs clear to auscultation Cardiovascular RRR, no murmur, no edema Neurologic PERRL, EOMI, accommodation nl, no face palsy, no dysarthria Psychiatric A+Ox3, euthymic affect Discharge Data Allergies Allergy/AdvReac Type Severity Reaction Status Date / Time Penicillins Allergy Unknown RASH Verified 12/31/20 01:06 codeine AdvReac Unknown NAUSEA & Verified 12/31/20 01:06 VOMITING Consultations 12/31/20 02:30 ED Decision to Admit Stat Ordered Studies 12/31/20 01:08 CT cervical spine wo con Urgent CT head/brain wo con Urgent Hospital Course (1) Alcohol intoxication: 75 yo M with hx gout, sleep apnea, afib, CKD, OA admitted for alcohol intoxication and fall. Fall - secondary to alcohol intoxication - had a total of 6 shots of vodka around 5 pm, followed by 3 10-12 ounce full glasses of box wine later in the evening - he remembers getting up to go up the stairs but does not remember tripping/falling down. He then recalls being upstairs but does not remember how he got there - states he did not hit his head when she found him. CT head negative - XR pelvic and Chest negative for fracture, pneumothorax -Had discussion with cardiology, no indication for further testing. Ok to discharge, also discussed with Dr. Cee who agrees. Alcohol Dependence, precontemplative - CAGE positive: considers cutting back, annoyed by asked about drinking habits - acknowledges that his children call him a functional alcoholic - states he is a 4 on scale for change (0 = will not consider cutting back, 10 = will cut back now) - says he would be a 5 if I told him he would within the year due to his drinking - believes that a reasonable goal for cutting back would be having 2 days per week that he does not drink - Discussed with him that alcohol abuse to this level while on a blood thinner is incredibly dangerous especially with falls, and that the alcohol will likely cause him to have kidney/liver damage eventually or contribute to him having a seriously damaging fall. He agreed that he "should probably cut back" but does not give the impression of being invested. Alcohol intoxication - treated with banana bag (2) Gout, joint: (3) Complex sleep apnea syndrome: (4) Benign prostatic hyperplasia: (5) Chronic kidney disease: (6) Permanent atrial fibrillation: (7) Osteoarthritis: (8) Non-occlusive coronary artery disease: Total Time Total Time Spent Total Time Spent (In Minutes): 32 Total Time Includes: Examination of the Patient, Discharge Planning and Medication Reconciliation Discharge Plan Discharge Items Patient Disposition: Home - Self-Care Reason For Visit: FALL, ALCOHOL ABUSE Discharge Diagnosis: ALCOHOL ABUSE Activity: Resume your previous activity Non-emergency contact: Primary Care Provider Call non-emergency contact if: you have any medication questions Follow-up/Referrals: Jeyson Cee MD [Primary Care Provider] - 01/08/21 11:30 am Diet: Regular Addtl Attending Provider Instructions: RECOMMEND followup with Dr. Cee. Recommend to cut back from drinking. Pending Studies at Discharge: No Stand-Alone Forms: [facility], Smoking Cessation Medications and DC Order Prescriptions: Continued cetirizine [Zyrtec] 10 mg tablet 10 mg PO HS RF: 0 cholecalciferol (vitamin D3) 2,000 unit capsule 3,000 units PO QAM RF: 0 escitalopram oxalate 20 mg tablet 20 mg PO QAM Qty: 90 RF: 3 apixaban 5 mg tablet 5 mg PO BID Qty: 180 RF: 3 allopurinol 300 mg tablet 150 mg PO QAM Qty: 45 RF: 3 atorvastatin 40 mg tablet 40 mg PO HS Qty: 90 RF: 3 tamsulosin 0.4 mg capsule 0.4 mg PO HS Qty: 90 RF: 3 diltiazem HCl [Cartia XT] 120 mg capsule,extended release 24hr 120 mg PO QAM Qty: 90 RF: 3 acetaminophen [Tylenol Extra Strength] 500 mg Tablet 1,000 mg PO Q6H PRN (Reason: Pain) RF: 0 No Action metoprolol succinate 25 mg tablet extended release 24 hr 25 mg PO .COMPLEX Qty: 225 RF: 3 Discharge Orders: Discharge Order (Routine); Ordered 12/31/20 Ordered By: Randall Schumacher Admission Data Admit Date/Time: 12/31/20 03:22 Attending Provider: Randall Schumacher Admit Provider: Angela Early Primary Care Provider: Jeyson Cee Other Providers: Leroy Szymanski Other Interventions: Discharge Summary Assessment (RN) Last Done: 12/31/20 14:09 Coding Level of Care Code 75722 OBS Care - Discharge Diagnoses Alcohol intoxication F10.929 Gout, joint M10.9 Complex sleep apnea syndrome G47.31 Benign prostatic hyperplasia N40.0 Chronic kidney disease N18.9 Permanent atrial fibrillation I48.21 Osteoarthritis M19.90 Non-occlusive coronary artery disease I25.10
== END 2020-12-31 14:50 | disposition home or self-care (01) ==
LOC: 3N 00:40 → ED 00:40 → SUATTDRO 03:22 → 3N 04:51

== ENCOUNTER 2022-01-31 10:41 | Observation (INO) ==
[2022-01-31 11:31] LABS: Basophils # (auto) 0.01 K/uL (0-0.2); Basophils % (auto) 0.1 %; Eosinophils # (auto) 0.04 K/uL (0-0.5); Eosinophils % (auto) 0.5 %; Hematocrit (blood only) 41.5 % (42-52); Hemoglobin 14.9 g/dL (14.0-18.0); Immature Granulocytes # (auto) 0.01 K/uL (0.00-0.02); Immature Granulocytes % (auto) 0.1 %; Lymphocytes # (auto) 0.64 K/uL (1.2-3.4); Lymphocytes % (auto) 7.3 %; Mean Corpuscular Hemoglobin 33.9 pg (25-34); Mean Corpuscular Hgb Conc 35.9 g/dL (32-36); Mean Corpuscular Volume 94.3 fL (80-100); Mean Platelet Volume 10.2 fL (7.4-10.4); Monocytes # (auto) 0.51 K/uL (0.11-0.59); Monocytes % (auto) 5.8 %; Neutrophils # (auto) 7.58 K/uL (1.4-6.5); Neutrophils % (auto) 86.2 %; Platelet Count 159 K/uL (130-400); RDW Coefficient of Variation 13.5 % (11.5-14.5); RDW Standard Deviation 46.4 fL (36.4-46.3); White Blood Count 8.79 K/uL (4.8-10.8)
[2022-01-31] MEDS ORDERED: METOPROLOL TARTRATE 1 MG/ML VIAL IV STA ×2 (11:41→13:02)
--- NOTE | 2022-01-31 11:51 | Emergency Department Note ---
Impression & Plan Atrial fibrillation with rapid ventricular response, Left-sided chest pain ED Provider Note INFORMANT: Patient and ED PROVIDER(S): mAadou Moon MD CHIEF COMPLAINT: Chest pain PLAN: Disposition: Admitted Condition: Good Outpatient prescription management: none Referral: None MEDICAL DECISION MAKING: Patient presented with complaints of left-sided chest pain. His monitoring ECG revealed A. fib with RVR. He is anticoagulated. The patient was given a dose of IV metoprolol. Patient's rate was better controlled. He did require a second dose of IV metoprolol. The patient's blood work was unremarkable. Troponin was negative. Given the patient's chest pain and his rapid A. fib further management in the hospital was felt to be appropriate. Patient and were updated. Consultation was made with Dr. Lainez of the [facility] service. Patient was evaluated in the ER and admitted for further management. Triage Nursing notes reviewed and agree them. Vital Signs: reviewed and remarkable for tachycardia Differential diagnosis: Cardiac ischemia, aortic dissection, pulmonary embolism, pneumothorax, pn eumonia, pericarditis, myocarditis, esophageal rupture, GERD, cholecystitis, pancreatitis, musculoskeletal, as well as other pathologies. Diagnostics interpreted by me: ECG: Lead ECG reveals atrial fibrillation with RVR at [address] No [address] elevation or depression. No PACs or PVCs. Normal axis. Cardiac Monitoring:Cardiac monitoring ordered by me: The patient was placed on continuous cardiac monitoring and observed. It revealed atrial fibrillation with rapid ventricular response at 130 bpm. Imaging studies: Chest x-ray. Findings: A chest x-ray was performed and revealed no pneumothorax, effusion, infiltrate, pulmonary edema, free air under the diaphragm, or wide mediastinum. Impression: No acute disease. HPI: The patient is a 76 year old male who presents to the Emergency Room with complaints of left-sided chest pain. This started started yesterday and is described as intermittent. Earlier this morning around 2 AM he noted he woke up and had more severe pain in the left shoulder and up into the left neck. He notes that originally started and it was substernal. At one point it did raise up to about an 8 out of 10. The substernal pain was about a 5. Currently when he presented he noted the pain was a 1 but is actually down to 0 now. The patient also notes the following associated symptoms, pain worsening with a deep breath. The patient has taken relieving factors. Current pain is rated as 0/10. Patient has history of A. fib. Pt denies LOC, headache, fevers, chills, diaphoresis, visual changes, breathing difficulties, nausea, vomiting, abdominal pain, back pain, melena, hematochezia, urinary symptoms, numbness, weakness, lymphadenopathy, rash, or other complaints. ROS: See above HPI for pertinent positives & negatives. A total of 10 systems reviewed and were otherwise negative. PAST MEDICAL HISTORY:See Below , influenza A, A. fib with RVR, or lipidemia PAST SURGICAL HISTORY:See Below, total hip replacement x3 FAMILY HISTORY:See Below SOCIAL HISTORY:See Below, HOME MEDICATIONS:See Below ALLERGIES:See Below VITALS:See Below PHYSICAL EXAMINATION: GENERAL: Awake, alert, well-appearing, in no distress HENT: Normocephalic, atraumatic. Oropharynx unremarkable. EYES: Normal conjunctiva. Sclera non-icteric. NECK: Inspection normal. Non-tender. Supple. No nuchal rigidity. FROM. No masses. RESPIRATORY: Clear to auscultation. No wheezes. No rales. Normal respiratory effort. CARDIAC: Tachycardic rate. Irregular rhythm. No murmurs. No rubs. Extremities warm and well perfused. Pulses equal. No JVD. GI: Soft, non-distended. No tenderness to palpation. No rebound or guarding. No masses. RECTAL: Deferred. MUSCULOSKELETAL: Atraumatic. Chest examination reveals no tenderness. The back is symmetrical on inspection without obvious abnormality. There is no CVA tenderness to palpation. No joint edema. LOWER EXTREMITIES: Calves are equal size bilaterally and non-tender. No edema. No discoloration. NEURO: Normal sensorium. No sensory or motor deficits noted. SKIN: No rash or jaundice noted. Amadou Moon MD Past Med/Surg History Medical History (Updated 01/31/22 @ 11:51 by Amadou Moon MD) Anxiety Benign prostatic hyperplasia Central sleep apnea Cigar smoker Complex sleep apnea syndrome Ganglion cyst Gout, joint Heavy alcohol use Hyperlipidemia LDL goal <70 Lymphopenia Non-occlusive coronary artery disease Osteoarthritis Permanent atrial fibrillation Skin cancer, basal cell Surgical History History of arthroscopic knee surgery S/P appendectomy S/P bilateral hip replacements S/P vasectomy Family History Mother Heart disease Hypertension Stroke Other Myocardial infarction Denies family history of Ovarian cancer Prostate cancer Breast cancer Colorectal cancer Social History (Updated 11/02/21 @ 13:03 by Jimmy Juárez) Smoking Status: Current some day smoker Tobacco Type: Cigars Cigarettes Per Day: 1 cigar a day in summer and twice a week in winter; Second Hand Exposure: No; Do You Dip or Chew Tobacco: No; Hx Alcohol Use: Yes Alcohol type: wine Alcohol Intake Frequency: 4 or More x per/Week Alcohol Intake Frequency Comment: 20 per week Hx Substance Use: No Preferred Language: Burkinan Communication Ability: Effective Visual Impairment: Limited Hearing Ability: Hard of Hearing Timber Estimator Required: No Beliefs That Will Affect Care: None marital status: Current Living Situation: Spouse current occupational status: 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 have: 2 Other Information That Helps Us Care for You: No Feels Safe at Home: Yes Safety Concerns: Feels Safe At This Time Childhood Exposure to Second-Hand Smoke: No caffeine: Yes (1 or 2 cup of coffee a day) Dental Care, Regularly: Yes Physical Activity Frequency: 1-2 Times per Week Physical Activity Frequency Comment: personal support worker twice a week and pickle ball twice a week Seatbelt Use: always Sunscreen Use: Yes (sometimes) Assistive Devices: CPAP and Glasses Allergies Allergies Allergy/AdvReac Type Severity Reaction Status Date / Time Penicillins Allergy Unknown RASH Verified 01/31/22 12:57 codeine AdvReac Unknown NAUSEA & Verified 01/31/22 12:57 VOMITING Home Meds Home Medications Medication Instructions Recorded Confirmed acetaminophen 500 mg tablet 1,000 mg PO Q6H PRN 11/24/19 01/31/22 (Tylenol Extra Strength) metoprolol succinate 25 mg 25 mg PO QAM tab 09/15/21 01/31/22 tablet,extended release 24 hr cholecalciferol (vitamin D3) 25 75 mcg PO QAM 01/31/22 01/31/22 mcg (1,000 unit) capsule (Vitamin D3) melatonin 3 mg tablet 3 mg PO HS PRN 01/31/22 01/31/22 Previous Rx's Medication Instructions Recorded escitalopram oxalate 20 mg tablet 20 mg PO QAM #90 tab 03/31/21 atorvastatin 40 mg tablet 40 mg PO HS #90 tab 10/27/21 allopurinol 300 mg tablet 150 mg PO QAM #45 tab 10/30/21 tamsulosin 0.4 mg capsule 0.4 mg PO HS #90 cap 11/10/21 apixaban 5 mg tablet 5 mg PO BID #180 tab 12/08/21 hydroxyzine HCl 25 mg tablet 25 mg PO BID PRN #30 tab 01/08/22 Results & Data (ED) Vital Signs Vital Signs - 24 hr 01/31/22 10:50 01/31/22 11:06 01/31/22 12:04 Temperature 36.6 C Temperature Source Temporal Artery Scan Pulse Rate 100 H 113 H Pulse Rate [Finger] Respiratory Rate 18 Blood Pressure 93/62 L 139/70 Blood Pressure [Left Arm] Blood Pressure Mean 72 Blood Pressure Mean [Left Arm] Pulse Oximetry 94 96 Oxygen Delivery Method Room Air Room Air Sepsis Recent Fever Within 48 Hours No Sepsis New/Unexplained Change in Mental Status No Sepsis Action Taken by Nursing No Action Required 01/31/22 12:07 01/31/22 12:21 01/31/22 13:26 Temperature Temperature Source Pulse Rate 109 H Pulse Rate [Finger] 102 H 99 H Respiratory Rate 16 18 Blood Pressure 104/66 Blood Pressure [Left Arm] 110/74 108/61 Blood Pressure Mean Blood Pressure Mean [Left Arm] 86 76 Pulse Oximetry 94 92 Oxygen Delivery Method Room Air Room Air Sepsis Recent Fever Within 48 Hours Sepsis New/Unexplained Change in Mental Status Sepsis Action Taken by Nursing Laboratory Data Result diagrams: 01/31/22 10:05 01/31/22 10:05 Lab Results 01/31/22 01/31/22 01/31/22 Range/Units 10:05 10:05 10:05 WBC 8.79 (4.8-10.8) K/uL RBC 4.40 L (4.7-6.1) M/uL Hgb 14.9 (14.0-18.0) g/dL Hct 41.5 L (42-52) % MCV 94.3 (80-100) fL MCH 33.9 (25-34) pg MCHC 35.9 (32-36) g/dL RDW Std Deviation 46.4 H (36.4-46.3) fL RDW Coeff of Stefany 13.5 (11.5-14.5) % Plt Count 159 (130-400) K/uL MPV 10.2 (7.4-10.4) fL Immature Gran % (Auto) 0.1 % Neut % (Auto) 86.2 % Lymph % (Auto) 7.3 % [place] % (Auto) 5.8 % Eos % (Auto) 0.5 % Baso % (Auto) 0.1 % Neut # (Auto) 7.58 H (1.4-6.5) K/uL Lymph # (Auto) 0.64 L (1.2-3.4) K/uL [place] # (Auto) 0.51 (0.11-0.59) K/uL Eos # (Auto) 0.04 (0-0.5) K/uL Baso # (Auto) 0.01 (0-0.2) K/uL Immature Gran # (Auto) 0.01 (0.00-0.02) K/uL D-Dimer 450 (0-500) ug/L FEU Sodium 140 (136-145) mmol/L Potassium 3.9 (3.5-5.1) mmol/L Chloride 105 (98-107) mmol/L Carbon Dioxide 25 (21-32) mmol/L Anion Gap 10 (3-11) BUN 17 (6-23) mg/dl Creatinine 1.31 (0.6-1.4) mg/dl Est Cr Clr Drug Dosing 50.3 ml/min Est GFR ( Amer) 60.9 ml/min Est GFR (Non-Af Amer) 52.5 ml/min BUN/Creatinine Ratio 13.0 (10-20) Glucose 146 H (70-99(Fasting)) mg/dl Calcium 9.4 (8.5-10.1) mg/dl Total Bilirubin 1.4 H (0.2-1.0) mg/dl AST 15 (13-39) U/L ALT 21 (7-52) U/L Alkaline Phosphatase 111 H (34-104) U/L Troponin I < 0.03 (0-0.04) ng/ml Total Protein 7.1 (6.0-8.3) gm/dl Albumin 4.3 (3.4-5.0) gm/dl Globulin 2.8 (2.5-4.0) gm/dl Albumin/Globulin Ratio 1.5 (0.9-2) Lipase 33 (11-82) U/L SARS-CoV-2, RNA, NAAT (NEGATIVE) 01/31/22 Range/Units 13:06 WBC (4.8-10.8) K/uL RBC (4.7-6.1) M/uL Hgb (14.0-18.0) g/dL Hct (42-52) % MCV (80-100) fL MCH (25-34) pg MCHC (32-36) g/dL RDW Std Deviation (36.4-46.3) fL RDW Coeff of Stefany (11.5-14.5) % Plt Count (130-400) K/uL MPV (7.4-10.4) fL Immature Gran % (Auto) % Neut % (Auto) % Lymph % (Auto) % [place] % (Auto) % Eos % (Auto) % Baso % (Auto) % Neut # (Auto) (1.4-6.5) K/uL Lymph # (Auto) (1.2-3.4) K/uL [place] # (Auto) (0.11-0.59) K/uL Eos # (Auto) (0-0.5) K/uL Baso # (Auto) (0-0.2) K/uL Immature Gran # (Auto) (0.00-0.02) K/uL D-Dimer (0-500) ug/L FEU Sodium (136-145) mmol/L Potassium (3.5-5.1) mmol/L Chloride (98-107) mmol/L Carbon Dioxide (21-32) mmol/L Anion Gap (3-11) BUN (6-23) mg/dl Creatinine (0.6-1.4) mg/dl Est Cr Clr Drug Dosing ml/min Est GFR ( Amer) ml/min Est GFR (Non-Af Amer) ml/min BUN/Creatinine Ratio (10-20) Glucose (70-99(Fasting)) mg/dl Calcium (8.5-10.1) mg/dl Total Bilirubin (0.2-1.0) mg/dl AST (13-39) U/L ALT (7-52) U/L Alkaline Phosphatase (34-104) U/L Troponin I (0-0.04) ng/ml Total Protein (6.0-8.3) gm/dl Albumin (3.4-5.0) gm/dl Globulin (2.5-4.0) gm/dl Albumin/Globulin Ratio (0.9-2) Lipase (11-82) U/L SARS-CoV-2, RNA, NAAT NEGATIVE (NEGATIVE) Administered Medications Folic Acid 1 mg/ Syringe 10 mls @ 5 mls/min IV QAM PORTIA Stop: 03/02/22 15:44 Last Admin: 01/31/22 16:08 Dose: 5 mls/min Documented by: [id number] Thiamine HCl (Thiamine Hcl 100 Mg Tab) 100 mg PO QA PORTIA Stop: 03/02/22 15:59 Last Admin: 01/31/22 17:27 Dose: 100 mg Documented by: [id number] Discontinued Medications Famotidine (Pepcid 20mg Iv Push) 20 mg in 5 mls @ 2.5 mls/min IV ONE ONE Stop: 01/31/22 14:01 Last Admin: 01/31/22 14:25 Dose: 2.5 mls/min Documented by: [id number] Thiamine HCl 100 mg/ Syringe 10 mls @ 2 mls/min IV NOW [facility] Stop: 01/31/22 14:23 Last Admin: 01/31/22 14:48 Dose: 2 mls/min Documented by: [id number] Magnesium Sulfate/Dextrose (Magnesium Sulfate / D5w) 1 gm in 100 mls @ 50 mls/hr IV ONE ONE Stop: 01/31/22 16:39 Last Infusion: 01/31/22 18:28 Dose: 0 mls/hr Documented by: [id number] Admin: 01/31/22 16:04 Dose: 50 mls/hr Documented by: [id number] Sodium Chloride (Nss) 500 mls @ 125 mls/hr IV .Q4H PORTIA Stop: 01/31/22 19:14 Last Infusion: 01/31/22 18:29 Dose: 125 mls/hr Documented by: [id number] Infusion: 01/31/22 18:27 Dose: 0 mls/hr Documented by: [id number] Admin: 01/31/22 16:04 Dose: 125 mls/hr Documented by: [id number] Metoprolol Tartrate (Metoprolol Tartrate 1 Mg/Ml Vial) 5 mg IV NOW STA; Protocol Stop: 01/31/22 11:42 Last Admin: 01/31/22 12:04 Dose: 5 mg Documented by: [id number] Metoprolol Tartrate (Metoprolol Tartrate 1 Mg/Ml Vial) 2.5 mg IV NOW STA; Protocol Stop: 01/31/22 13:03 Last Admin: 01/31/22 13:26 Dose: 2.5 mg Documented by: [id number] Metoprolol Tartrate (Metoprolol Tartrate 25 Mg Tab) 25 mg PO NOW STA Stop: 01/31/22 13:46 Last Admin: 01/31/22 14:24 Dose: 25 mg Documented by: [id number] Potassium Chloride (Potassium Chloride Crtab 20 Meq Tabcr) 20 meq PO NOW STA Stop: 01/31/22 14:41 Last Admin: 01/31/22 17:39 Dose: Not Given Documented by: [id number] Potassium Chloride (Potassium Chloride Crtab 20 Meq Tabcr) 20 meq PO NOW STA Stop: 01/31/22 17:36 Last Admin: 01/31/22 17:48 Dose: 20 meq Documented by: [id number] Thiamine HCl (Thiamine Hcl 100 Mg/Ml 2 Ml Vial) 100 mg IM NOW STA Stop: 01/31/22 13:46 Last Admin: 01/31/22 17:29 Dose: Not Given Documented by: [id number] Imaging Data Radiologist's Impression: Chest X-Ray 01/31/22 11:05 SINGLE VIEW CHEST CLINICAL HISTORY: Atypical chest pain. FINDINGS: An AP, portable, upright chest radiograph is compared to study dated 12/31/2020. The heart is enlarged noting atherosclerotic calcification of the thoracic aorta. The pulmonary vasculature is noncongested. Chronic interstitial thickening is similar to previous. There is mild bibasilar scarring/atelectasis. The lungs and pleural spaces are otherwise clear. No pneumothorax is seen. The skeletal structures are osteopenic. The bony thorax is grossly intact. IMPRESSION: Cardiomegaly with no acute cardiopulmonary abnormality. ACT 112: Negative or not required by law. Electronically signed by: Sebastián Hubbard M.D. 01/31/2022 11:50 AM Discharge Plan Visit Data Chief Complaint: Cardiac Assessment Stated Complaint: CHEST PAIN EXTENDING TO L SHOULDER ED Provider: Amadou Moon Discharge Problem: Atrial fibrillation with rapid ventricular response, Left-sided chest pain Patient Disposition: Admitted As Inpatient Discharge Instructions Interventions: ED Discharge Assessment Last Done: 01/31/22 15:00
--- NOTE | 2022-01-31 11:52 | XRay Report ---
SINGLE VIEW CHEST CLINICAL HISTORY: Atypical chest pain. FINDINGS: An AP, portable, upright chest radiograph is compared to study dated 12/31/2020. The heart i s enlarged noting atherosclerotic calcification of the thoracic aorta. The pulmonary vasculature is n oncongested. Chronic interstitial thickening is similar to previous. There is mild bibasilar scarring /atelectasis. The lungs and pleural spaces are otherwise clear. No pneumothorax is seen. The skeletal structures are osteopenic. The bony thorax is grossly intact. IMPRESSION: Cardiomegaly with no acute cardiopulmonary abnormality. ACT 112: Negative or not required by law. Electronically signed by: Sebastián Hubbard M.D. 01/31/2022 11:50 AM
[2022-01-31 11:54] LABS: D Dimer 450 ug/L FEU (0-500)
[2022-01-31 12:00] LABS: Alanine Aminotransferase 21 U/L (7-52); Albumin Globulin Ratio 1.5 (0.9-2); Albumin Level 4.3 gm/dl (3.4-5.0); Alkaline Phosphatase 111 U/L (34-104); Anion Gap 10 (3-11); Aspartate Aminotransferase 15 U/L (13-39); Bilirubin,Total 1.4 mg/dl (0.2-1.0); Blood Urea Nitrogen 17 mg/dl (6-23); Calcium 9.4 mg/dl (8.5-10.1); Carbon Dioxide 25 mmol/L (21-32); Chloride 105 mmol/L (98-107); Creatinine Clr Calc Pharmacy 50.3 ml/min; Est GFR (African American) 60.9 ml/min; Est GFR (Non-African American) 52.5 ml/min; Globulin 2.8 gm/dl (2.5-4.0); Glucose 146 mg/dl (70-99(Fasting)); Lipase 33 U/L (11-82); Potassium 3.9 mmol/L (3.5-5.1); Sodium 140 mmol/L (136-145); Total Protein 7.1 gm/dl (6.0-8.3)
[2022-01-31 12:02] LABS: Troponin I < 0.03 ng/ml (0-0.04)
--- NOTE | 2022-01-31 13:34 | History & Physical Report ---
Date of Service January 31, 2022 Assessment & Plan (1) Atrial fibrillation with rapid ventricular response: Plan: With a history of permanent atrial fibrillation. Here with substernal chest pressure that lasted all day and now development of left shoulder pain, found to be in rapid atrial fibrillation in the ER His metoprolol dose was decreased but it was at least a couple of months ago He does drink alcohol fairly heavily, has actually cut down from previous and has not had a drink in almost 72 hours He is compliant with his CPAP at nighttime No signs of infection anywhere, does not appear to be overtly hypovolemic Unclear what triggered this rapid atrial fibrillation Rates are better controlled with IV Lopressor in the ER and he did take his Toprol-XL 25 mg this morning -Admit to PCU for telemetry monitoring -Give metoprolol tartrate 25 mg now and then twice daily after that, will likely need to increase his Toprol-XL dose but will stick with short acting metoprolol tartrate for now -Check echocardiogram -Consult his solid state tester -Watch for alcohol withdrawal as below as perhaps this is contributing to some of his tachycardia -Give 500 mL of normal saline now -Give 1 g of magnesium sulfate and 20 mEq of p.o. potassium chloride to keep mag and potassium above 2 and 4 respectively -Follow CBC, BMP, magnesium in the morning -Continue home apixaban for anticoagulation (2) Left-sided chest pain: Plan: With substernal chest pressure all day yesterday relieved with Tylenol and left shoulder pain here now also resolved with rate controlled atrial fibrillation Troponin negative x2 making acute coronary syndrome ruled out ECG without acute ischemic changes Suspect related to musculoskeletal issue versus rapid atrial fibrillation versus GI source Try Pepcid 20 mg IV x1 now Monitor for recurrence Check echocardiogram N.p.o. after midnight in case of need for stress test in the morning Consulting solid state tester as above (3) Complex sleep apnea syndrome: Plan: He will bring in his CPAP from home (4) Heavy alcohol use: Plan: Used to drink much more heavily until he fell down the steps while intoxicated last year Now drinks 3 glasses of wine every other night but last drink was now on 01/28 May be some component of tachycardia related to alcohol withdrawal AWSS protocol and lorazepam as needed Start daily IV folate, thiamine Monitor for withdrawal symptoms (5) HTN (hypertension): Plan: Blood pressures are controlled to soft on arrival, improved with control of rapid atrial fibrillation Continue metoprolol as above (6) Gout, joint: Plan: No acute issues Continue allopurinol for prevention (7) Anxiety: Plan: No acute issues Continue Lexapro and hydroxyzine as needed Melatonin for sleep (8) Benign prostatic hyperplasia: Plan: Continue home tamsulosin No acute issues (9) Hyperlipidemia LDL goal <70: Plan: Continue statin (10) Permanent atrial fibrillation: Plan: As above Plan: DVT prophylaxis-Eliquis, SCDs Disposition-admit to PCU Full code History of Present Illness Chief Complaint: Chest pain Primary Care Provider: Mago Hui MD This patient is a 76-year-old male with a history of atrial fibrillation on Eliquis, HTN, depression/anxiety, gout, ISABEL on CPAP, CKD stage III, hyp erlipidemia, alcohol abuse, and BPH who presents to the ER with substernal and left-sided chest pain radiating to the left shoulder. He reports he had substernal chest pressure pretty much all day long yesterday along with some headache in the back of his head-both things went away after taking Tylenol in the afternoon. He did not check his blood pressure or heart rate during the day yesterday. He has had no associated shortness of breath or nausea, no abdominal pain. Then, last night he woke up with pretty severe left shoulder pain at 1 in the morning but no associated chest pain. The pain was not worse with movement. He took some Tylenol again and went back to sleep. When he woke up, he was still having some left shoulder pain although slightly improved. And he decided to eat breakfast and then come to the ER. By the time he got to the ER, his left shoulder pain had pretty much resolved and when I saw him, it was completely resolved. In the ER, he was found to have rapid atrial fibrillation with a rate in the 120s and a soft blood pressure of 93/62. He was given a total of 7.5 mg of IV Lopressor and his rate was improved to the low 100s and blood pressures improved. As per cardiology notes, he has a tendency to have bradycardia and mention was made of possible pacemaker if needed in the future for tachybradycardia syndrome. He does report that his Toprol-XL dose was decreased a couple of months ago down to 25 mg once daily but previous dose was 37.5 mg in the morning 25 in the evening. He reports he drinks 2 to 3 glasses of wine every other night in an effort to cut down from heavy drinking previously after a fall down the stairs while intoxicated last year. His last drink was on the evening of 01/28. He is very compliant with using his CPAP every night. His troponin was negative and ECG was without ischemic changes but did show rapid atrial fibrillation. D-dimer was negative, electrolytes were otherwise stable except magnesium was not drawn at the time of admission. Chest x-ray was negative. He will be admitted for rapid atrial fibrillation and further evaluation of left-sided shoulder pain and substernal chest pain. Allergies Allergy/AdvReac Type Severity Reaction Status Date / Time Penicillins Allergy Unknown RASH Verified 01/31/22 12:57 codeine AdvReac Unknown NAUSEA & Verified 01/31/22 12:57 VOMITING Home Medications Medication Instructions Recorded Confirmed Type acetaminophen 500 mg tablet 1,000 mg PO Q6H PRN 11/24/19 01/31/22 History (Tylenol Extra Strength) escitalopram oxalate 20 mg tablet 20 mg PO QAM #90 tab 03/31/21 01/31/22 Rx metoprolol succinate 25 mg 25 mg PO QAM tab 09/15/21 01/31/22 History tablet,extended release 24 hr atorvastatin 40 mg tablet 40 mg PO HS #90 tab 10/27/21 01/31/22 Rx allopurinol 300 mg tablet 150 mg PO QAM #45 tab 10/30/21 01/31/22 Rx tamsulosin 0.4 mg capsule 0.4 mg PO HS #90 cap 11/10/21 01/31/22 Rx apixaban 5 mg tablet 5 mg PO BID #180 tab 12/08/21 01/31/22 Rx hydroxyzine HCl 25 mg tablet 25 mg PO BID PRN #30 tab 01/08/22 01/31/22 Rx cholecalciferol (vitamin D3) 25 75 mcg PO QAM 01/31/22 01/31/22 History mcg (1,000 unit) capsule (Vitamin D3) melatonin 3 mg tablet 3 mg PO HS PRN 01/31/22 01/31/22 History Past Med/Surg History Medical History (Updated 01/31/22 @ 11:51 by Amadou Moon MD) Anxiety Benign prostatic hyperplasia Central sleep apnea Cigar smoker Complex sleep apnea syndrome Ganglion cyst Gout, joint Heavy alcohol use Hyperlipidemia LDL goal <70 Lymphopenia Non-occlusive coronary artery disease Osteoarthritis Permanent atrial fibrillation Skin cancer, basal cell Surgical History History of arthroscopic knee surgery S/P appendectomy S/P bilateral hip replacements S/P vasectomy Family History Mother Heart disease Hypertension Stroke Other Myocardial infarction Denies family history of Ovarian cancer Prostate cancer Breast cancer Colorectal cancer Social History (Updated 11/02/21 @ 13:03 by Jimmy Juárez) Smoking Status: Current every day smoker Tobacco Type: Cigars Cigarettes Per Day: 1 cigar a day in summer and twice a week in winter; Second Hand Exposure: No; Hx Alcohol Use: Yes Alcohol type: beer, wine and hard liquor Alcohol Intake Frequency: 4 or More x per/Week Alcohol Intake Frequency Comment: 20 per week Hx Substance Use: No Preferred Language: Bruneian Communication Ability: Effective Visual Impairment: Limited Hearing Ability: Hard of Hearing Pumper Gauger Apprentice Required: No Beliefs That Will Affect Care: None marital status: Current Living Situation: Spouse current occupational status: 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 have: 2 Feels Safe at Home: Yes Childhood Exposure to Second-Hand Smoke: No caffeine: Yes (1 or 2 cup of coffee a day) Dental Care, Regularly: Yes Physical Activity Frequency: 1-2 Times per Week Physical Activity Frequency Comment: personal injury legal assistant twice a week and pickle ball twice a week Seatbelt Use: always Sunscreen Use: Yes (sometimes) Assistive Devices: None Review of Systems Review of Systems: All systems reviewed & are unremarkable except as noted in HPI & below No fevers or chills but did have influenza 1 month ago at which time he did have fevers No constipation or diarrhea, no urinary symptoms, no blood in the stool, no nausea or vomiting No further headache No vision changes No weakness/numbness/tingling anywhere Physical Exam Constitutional: WD/WN, vitals as above Eyes: PERRL, conjunctivae normal, anicteric sclerae ENMT: external ear and nose normal, oropharynx normal Neck: trachea midline, no thyromegaly Respiratory: normal respiratory effort, lungs clear to auscultation Cardiovascular: Rate/Rhythm: + tachycardic and + irregularly irregular Heart Sounds: no murmur Vessels: no JVD Extremities: no edema Chest (Breasts): Chest: normal inspection of chest Gastrointestinal (Abdomen): normal bowel sounds, soft, nontender, no hepatosplenomegaly Musculoskeletal: Extremities: extremities normal to inspection; no cyanosis a nd no clubbing No pain with range of motion of left shoulder, no obvious abnormalities on visual inspection Skin: no rashes, warm and dry Neurologic: moves all extremities and awake; no focal motor deficits Psychiatric: A+Ox3, euthymic affect Lymphatic: no lymphedema Results & Data Results & Data ([facility]) Vital Signs (Past 12 Hours) Vital Signs Temp Pulse Pulse Resp BP BP Pulse Ox 01/31/22 13:26 109 H 104/66 01/31/22 12:21 99 H 18 108/61 92 01/31/22 12:07 102 H 16 110/74 94 01/31/22 12:04 113 H 139/70 01/31/22 11:06 96 01/31/22 10:50 36.6 C 100 H 18 93/62 L 94 Laboratory Results 01/31/22 01/31/22 01/31/22 Range/Units 14:11 13:06 10:05 WBC (4.8-10.8) K/uL RBC (4.7-6.1) M/uL Hgb (14.0-18.0) g/dL Hct (42-52) % MCV (80-100) fL MCH (25-34) pg MCHC (32-36) g/dL RDW Std Deviation (36.4-46.3) fL RDW Coeff of Stefany (11.5-14.5) % Plt Count (130-400) K/uL MPV (7.4-10.4) fL Immature Gran % (Auto) % Neut % (Auto) % Lymph % (Auto) % Tucker % (Auto) % Eos % (Auto) % Baso % (Auto) % Neut # (Auto) (1.4-6.5) K/uL Lymph # (Auto) (1.2-3.4) K/uL Tucker # (Auto) (0.11-0.59) K/uL Eos # (Auto) (0-0.5) K/uL Baso # (Auto) (0-0.2) K/uL Immature Gran # (Auto) (0.00-0.02) K/uL D-Dimer (0-500) ug/L FEU Sodium 140 (136-145) mmol/L Potassium 3.9 (3.5-5.1) mmol/L Chloride 105 (98-107) mmol/L Carbon Dioxide 25 (21-32) mmol/L Anion Gap 10 (3-11) BUN 17 (6-23) mg/dl Creatinine 1.31 (0.6-1.4) mg/dl Est Cr Clr Drug Dosing 50.3 ml/min Est GFR ( Amer) 60.9 ml/min Est GFR (Non-Af Amer) 52.5 ml/min BUN/Creatinine Ratio 13.0 (10-20) Glucose 146 H (70-99(Fasting)) mg/dl Calcium 9.4 (8.5-10.1) mg/dl Magnesium 1.9 (1.7-2.4) mg/dl Total Bilirubin 1.4 H (0.2-1.0) mg/dl AST 15 (13-39) U/L ALT 21 (7-52) U/L Alkaline Phosphatase 111 H (34-104) U/L Troponin I < 0.03 < 0.03 (0-0.04) ng/ml Total Protein 7.1 (6.0-8.3) gm/dl Albumin 4.3 (3.4-5.0) gm/dl Globulin 2.8 (2.5-4.0) gm/dl Albumin/Globulin Ratio 1.5 (0.9-2) Lipase 33 (11-82) U/L SARS-CoV-2, RNA, NAAT NEGATIVE (NEGATIVE) 01/31/22 01/31/22 Range/Units 10:05 10:05 WBC 8.79 (4.8-10.8) K/uL RBC 4.40 L (4.7-6.1) M/uL Hgb 14.9 (14.0-18.0) g/dL Hct 41.5 L (42-52) % MCV 94.3 (80-100) fL MCH 33.9 (25-34) pg MCHC 35.9 (32-36) g/dL RDW Std Deviation 46.4 H (36.4-46.3) fL RDW Coeff of Stefany 13.5 (11.5-14.5) % Plt Count 159 (130-400) K/uL MPV 10.2 (7.4-10.4) fL Immature Gran % (Auto) 0.1 % Neut % (Auto) 86.2 % Lymph % (Auto) 7.3 % Tucker % (Auto) 5.8 % Eos % (Auto) 0.5 % Baso % (Auto) 0.1 % Neut # (Auto) 7.58 H (1.4-6.5) K/uL Lymph # (Auto) 0.64 L (1.2-3.4) K/uL Tucker # (Auto) 0.51 (0.11-0.59) K/uL Eos # (Auto) 0.04 (0-0.5) K/uL Baso # (Auto) 0.01 (0-0.2) K/uL Immature Gran # (Auto) 0.01 (0.00-0.02) K/uL D-Dimer 450 (0-500) ug/L FEU Sodium (136-145) mmol/L Potassium (3.5-5.1) mmol/L Chloride (98-107) mmol/L Carbon Dioxide (21-32) mmol/L Anion Gap (3-11) BUN (6-23) mg/dl Creatinine (0.6-1.4) mg/dl Est Cr Clr Drug Dosing ml/min Est GFR ( Amer) ml/min Est GFR (Non-Af Amer) ml/min BUN/Creatinine Ratio (10-20) Glucose (70-99(Fasting)) mg/dl Calcium (8.5-10.1) mg/dl Magnesium (1.7-2.4) mg/dl Total Bilirubin (0.2-1.0) mg/dl AST (13-39) U/L ALT (7-52) U/L Alkaline Phosphatase (34-104) U/L Troponin I (0-0.04) ng/ml Total Protein (6.0-8.3) gm/dl Albumin (3.4-5.0) gm/dl Globulin (2.5-4.0) gm/dl Albumin/Globulin Ratio (0.9-2) Lipase (11-82) U/L SARS-CoV-2, RNA, NAAT (NEGATIVE) Diagnostic Findings Chest x-ray image personally reviewed by me and agree with the following report: Chest X-Ray 01/31/22 11:05 SINGLE VIEW CHEST CLINICAL HISTORY: Atypical chest pain. FINDINGS: An AP, portable, upright chest radiograph is compared to study dated 12/31/2020. The heart is enlarged noting atherosclerotic calcification of the thoracic aorta. The pulmonary vasculature is noncongested. Chronic interstitial thickening is similar to previous. There is mild bibasilar scarring/atelectasis. The lungs and pleural spaces are otherwise clear. No pneumothorax is seen. The s keletal structures are osteopenic. The bony thorax is grossly intact. IMPRESSION: Cardiomegaly with no acute cardiopulmonary abnormality. ACT 112: Negative or not required by law. Electronically signed by: Sebastián Hubbard M.D. 01/31/2022 11:50 AM ECG Additional Comments: ECG on 01/31/2022 at 1057 with atrial fibrillation with RVR, rate 125, nonspecific ST and T wave abnormality in the anterior leads not changed from previous Code Status & VTE Plan Code Status Full code VTE Prophylaxis Plan VTE Prophylaxis will be ordered: Yes PG Care Time/CCT Total # of Minutes Spent Total Time Spent with Patient: Total time spent is greater than 50% in coordination of care (as documented) at patient's floor/unit and/or counseling patient: Coding Level of Care Code INT OBSERVATION CARE 70M LVL 3 Diagnoses Atrial fibrillation with rapid ventricular response I48.91 Left-sided chest pain R07.9 Complex sleep apnea syndrome G47.31 Heavy alcohol use Z78.9 HTN (hypertension) I10 Hypertension type: primary hypertension Gout, joint M10.9 Anxiety F41.9 Benign prostatic hyperplasia N40.0 Lower urinary tract symptom presence: symptoms absent Hyperlipidemia LDL goal <70 E78.5 Permanent atrial fibrillation I48.21 (1) Benign prostatic hyperplasia Lower urinary tract symptom presence: symptoms absent Qualified Code(s): N40.0 - Benign prostatic hyperplasia without lower urinary tract symptoms (2) HTN (hypertension) Hypertension type: primary hypertension Qualified Code(s): I10 - Essential (primary) hypertension
[2022-01-31] MEDS ORDERED: THIAMINE HCL 100 MG/ML 2 ML VIAL IM STA (13:45)
[2022-01-31] MEDS ORDERED: METOPROLOL TARTRATE 25 MG TAB PO STA (13:45)
[2022-01-31] MEDS ORDERED: FAMOTIDINE 20 MG in SYRINGE 3 ML IV ONE (13:46)
[2022-01-31] MEDS ORDERED: FAMOTIDINE 20MG IV PUSH 20 MG/5 ML SYR IV ONE (14:00)
[2022-01-31] MEDS ORDERED: THIAMINE HCL 100 MG in SYRINGE 9 ML IV STA (14:19)
[2022-01-31 14:38] LABS: Magnesium 1.9 mg/dl (1.7-2.4)
[2022-01-31] MEDS ORDERED: MAGNESIUM SULFATE / D5W 1 GM/100 ML BAG IV ONE (14:40)
[2022-01-31] MEDS ORDERED: POTASSIUM CHLORIDE CRTAB 20 MEQ TABCR PO STA ×2 (14:40→17:35)
[2022-01-31 14:41] LABS: Troponin I < 0.03 ng/ml (0-0.04)
[2022-01-31] MEDS ORDERED: SODIUM CHLORIDE 0.9% 500 ML IV SCH (15:15)
[2022-01-31] MEDS ORDERED: ACETAMINOPHEN 325 MG TAB PO PRN (15:29)
[2022-01-31] MEDS ORDERED: ATIVAN IV ALCOHOL WITHDRAWL IV PRN (15:29)
[2022-01-31] MEDS ORDERED: hydrOXYzine HCl 25 MG TAB PO PRN (15:29)
[2022-01-31] MEDS ORDERED: MELATONIN 3 MG TAB PO PRN (15:29)
[2022-01-31] MEDS ORDERED: ACETAMINOPHEN 500 MG TAB PO PRN (15:29)
[2022-01-31] MEDS ORDERED: LORazepam 2 MG/1 ML VIAL IV PRN ×4 (15:29)
[2022-01-31] MEDS ORDERED: METOPROLOL TARTRATE 1 MG/ML VIAL IV PRN (15:29)
[2022-01-31] MEDS: FOLIC ACID 1 MG in SYRINGE 9.8 ML IV SCH (16:08)
[2022-01-31] MEDS: THIAMINE HCL 100 MG TAB PO SCH (17:27)
[2022-01-31] MEDS: APIXABAN 5 MG TABLET PO SCH (19:59)
[2022-01-31] MEDS: METOPROLOL TARTRATE 25 MG TAB PO SCH (20:01)
[2022-01-31] MEDS ORDERED: TAMSULOSIN HCL 0.4 MG CAP PO SCH (21:00)
[2022-01-31] MEDS ORDERED: ATORVASTATIN 40 MG TAB PO SCH (21:00)
[2022-02-01 06:48] LABS: Basophils # (auto) 0.02 K/uL (0-0.2); Basophils % (auto) 0.4 %; Eosinophils # (auto) 0.13 K/uL (0-0.5); Eosinophils % (auto) 2.3 %; Hematocrit (blood only) 36.9 % (42-52); Hemoglobin 13.4 g/dL (14.0-18.0); Lymphocytes # (auto) 1.27 K/uL (1.2-3.4); Lymphocytes % (auto) 22.8 %; Mean Corpuscular Hemoglobin 33.9 pg (25-34); Mean Corpuscular Hgb Conc 36.3 g/dL (32-36); Mean Corpuscular Volume 93.4 fL (80-100); Mean Platelet Volume 10.4 fL (7.4-10.4); Monocytes # (auto) 0.47 K/uL (0.11-0.59); Monocytes % (auto) 8.5 %; Neutrophils # (auto) 3.67 K/uL (1.4-6.5); Platelet Count 138 K/uL (130-400); RDW Coefficient of Variation 13.5 % (11.5-14.5); RDW Standard Deviation 46.3 fL (36.4-46.3); Red Blood Count 3.95 M/uL (4.7-6.1); White Blood Count 5.56 K/uL (4.8-10.8)
[2022-02-01 06:58] LABS: Anion Gap 7 (3-11); Blood Urea Nitrogen 18 mg/dl (6-23); Calcium 8.8 mg/dl (8.5-10.1); Carbon Dioxide 24 mmol/L (21-32); Chloride 108 mmol/L (98-107); Creatinine Clr Calc Pharmacy 50.9 ml/min; Est GFR (Non-African American) 53.5 ml/min; Glucose 101 mg/dl (70-99(Fasting)); Potassium 4.2 mmol/L (3.5-5.1); Sodium 139 mmol/L (136-145); Troponin I < 0.03 ng/ml (0-0.04)
--- NOTE | 2022-02-01 07:44 | Hospitalist Progress Note ---
Date of Service February 01, 2022 Assessment & Plan (1) Atrial fibrillation with rapid ventricular response: Plan: With a history of permanent atrial fibrillation. Here with substernal chest pressure that lasted all day and now development of left shoulder pain, found to be in rapid atrial fibrillation in the ER His metoprolol dose was decreased but it was at least a couple of months ago He does drink alcohol fairly heavily, has actually cut down from previous and has not had a drink in almost 72 hours He is compliant with his CPAP at nighttime Rates are better controlled with IV Lopressor will likely need to increase his Toprol-XL dose but will stick with short acting metoprolol tartrate for now -Check echocardiogram -Consult his automatic nailing machine feeder -Watch for alcohol withdrawal as below as perhaps this is contributing to some of his tachycardia -replete electrolytes -Continue home apixaban for anticoagulation (2) Left-sided chest pain: Plan: With substernal chest pressure all day yesterday relieved with Tylenol and left shoulder pain here now also resolved with rate controlled atrial fibrillation Troponin negative x4 making acute coronary syndrome ruled out ECG without acute ischemic changes N.p.o. after midnight in case of need for stress test, although rapid rate is similar to stress, 85% of MPHR is 122 and he reached that level (3) Complex sleep apnea syndrome: Plan: He will bring in his CPAP from home (4) Heavy alcohol use: Plan: Used to drink much more heavily until he fell down the steps while intoxicated last year Now drinks 3 glasses of wine every other night but last drink was now on 01/28 May be some component of tachycardia related to alcohol withdrawal AWSS protocol and lorazepam as needed Start daily IV folate, thiamine Monitor for withdrawal symptoms (5) HTN (hypertension): Plan: Blood pressures are controlled to soft on arrival, improved with control of rapid atrial fibrillation Continue metoprolol as above (6) Gout, joint: Plan: No acute issues Continue allopurinol for prevention (7) Anxiety: Plan: No acute issues Continue Lexapro and hydroxyzine as needed Melatonin for sleep (8) Benign prostatic hyperplasia: Plan: Continue home tamsulosin No acute issues (9) Hyperlipidemia LDL goal <70: Plan: Continue statin (10) Permanent atrial fibrillation: Plan: As above Plan: DVT prophylaxis-Eliquis, SCDs Disposition-admit to PCU Full code Admission and Anticipated Discharge Date Admission Date: January 31, 2022 Results & Data Results & Data ([facility]) Vital Signs (Past 12 Hours) Vital Signs Temp Pulse Pulse Resp BP BP Pulse Ox 02/01/22 03:36 98.2 F 101 H 18 102/74 94 01/31/22 23:41 98.4 F 88 18 118/84 95 01/31/22 22:57 93 H 01/31/22 19:51 98.4 F 103 H 18 131/69 94 PG Care Time/CCT Total # of Minutes Spent Total Time Spent with Patient: Total time spent is greater than 50% in coordination of care (as documented) at patient's floor/unit and/or counseling patient: Coding Diagnoses Atrial fibrillation with rapid ventricular response I48.91 Left-sided chest pain R07.9 Complex sleep apnea syndrome G47.31 Heavy alcohol use Z78.9 HTN (hypertension) I10 Hypertension type: primary hypertension Gout, joint M10.9 Anxiety F41.9 Benign prostatic hyperplasia N40.0 Lower urinary tract symptom presence: symptoms absent Hyperlipidemia LDL goal <70 E78.5 Permanent atrial fibrillation I48.21 (1) Benign prostatic hyperplasia Lower urinary tract symptom presence: symptoms absent Qualified Code(s): N40.0 - Benign prostatic hyperplasia without lower urinary tract symptoms (2) HTN (hypertension) Hypertension type: primary hypertension Qualified Code(s): I10 - Essential (primary) hypertension
[2022-02-01] MEDS: FOLIC ACID 1 MG in SYRINGE 9.8 ML IV SCH (08:23)
[2022-02-01] MEDS: APIXABAN 5 MG TABLET PO SCH (08:24)
[2022-02-01] MEDS: METOPROLOL TARTRATE 25 MG TAB PO SCH (08:25)
[2022-02-01] MEDS: THIAMINE HCL 100 MG TAB PO SCH (08:25)
[2022-02-01] MEDS ORDERED: ESCITALOPRAM OXALATE 20 MG TAB PO SCH (09:00)
[2022-02-01] MEDS ORDERED: allopurinoL 300 MG TAB PO SCH (09:00)
[2022-02-01] MEDS ORDERED: METOPROLOL SUCC 25MG EXT REL TAB PO SCH (09:00)
[2022-02-01] MEDS ORDERED: METOPROLOL TARTRATE 25 MG TAB PO STA (10:25)
--- NOTE | 2022-02-01 10:35 | Cardiology Consultation ---
Date of Consultation February 01, 2022 Assessment & Plan (1) Permanent atrial fibrillation: (2) Left-sided chest pain: (3) HTN (hypertension): (4) CAD (coronary artery disease): ASSESSMENT/PLAN: 1. Atrial fibrillation: Permanent. Not well controlled with resting heart rates into the 120s with conversation. Increase metoprolol to 50 mg twice daily. Had been on metoprolol and diltiazem in the past but based on record review and patient recollection, regimen has been down titrated due to orthostatic symptoms. If orthostatic symptoms become an issue, can consider digoxin for added rate control. Continue anticoagulation for stroke risk reduction. 2. Chest pain: Atypical. Prolonged episodes with negative troponin. Not likely ischemic in origin. Could be related to AFib with RVR or other possibilities. Consider esophagitis or gastritis especially given alcohol consumption history. Does not need to remain hospitalized for ischemic evaluation and would not pursue stress echo currently given uncontrolled heart rate in the setting of AFib. 3. Hypertension: Blood pressure is normal. Monitor blood pressure with titration of beta-gina. 4. CAD: Reported as nonobstructive > 10 years ago during [facility] [place]. Symptoms are not highly suggestive of ischemic heart disease given prolonged episodes and negative troponin. Continue high-intensity statin therapy and beta-gina as tolerated. 5. Disposition: Cardiology will continue to follow up hospitalized. If he is d ischarged today (patient wishes), would recommend close follow-up within [address] Boone is office. Patient care and plan discussed with Dr. Zamora of the primary hospitalist service. Today's visit was 47 minutes in duration, with greater than 50% time spent [id number] including counseling patient coordinating care with primary hospitalist. Time also included reviewing records/chart and chart completion. Thank you for allowing me to participate in the care of your patient. Please call for any other questions or concerns. Sincerely, Joel Nath M.D. History of Present Illness Reason for Consultation: "Rapid atrial fibrillation, chest pain" Requesting Physician: Dr. Lainez Attending Physician: Adrian Zamora MD History of Present Illness Mr. Ramos is a very pleasant 76-year-old gentleman with history significant for permanent atrial fibrillation, nonobstructive CAD (2003 cath with 40% stenosis), sleep apnea on CPAP, CKD, dyslipidemia, and alcohol use. His primary extension service supervisor is Dr. Boone. He reports undergoing cardiac catheterization many years ago, 2002 based on cardiology outpatient record, and was told that he had a 40% stenosis. He did not require PCI. C[place] [facility] He follows with Dr. Boone for permanent atrial fibrillation. In the past he was on diltiazem and metoprolol 37.5 mg in the morning and 25 mg in the evening. He describes orthostatic symptoms and based on multiple records that were reviewed, it appears as though his rate-controlling medications were reduced for concerns of orthostasis. He more recently was taking metoprolol succinate 25 mg once daily. On 01/30/2022, he woke up with chest pressure in the substernal area. It was constant all day. There was no identifiable trigger. He took Tylenol which helped relieve his symptoms and more Tylenol before bed that evening. On 01/31/2022, he was once again awakened between 1 or 2:00 a.m. but this time with left shoulder pain and no chest pain. This pain was worse than his chest discomfort and he rated it 7 or 8/10. He once again took Tylenol which helped his pain and allow him to fall back to sleep. When he woke up, the left shoulder pain was still present so he came to the ER. He was chest pain-free and also denied left shoulder pain during our visit. He was seen this morning. He denies any associated shortness of breath, palpitations, syncope, edema, or bleeding such as melena, hematochezia, or hematuria. He recalls being diagnosed with influenza a approximately 3 weeks ago and was prescribed Tamiflu, which he believed to help him recover. He described orthostatic symptoms when standing quickly from a seated position or walking up stairs. This was in the past, but denies actual syncope. While here, he was noted to have elevated heart rate in atrial fibrillation. During our conversation, his heart rate was mostly in the 90s to low 100s but when he began to speak, his heart rate would go into the 120s while sitting in bed. He was asymptomatic in this regard. Review of systems: As above. Review of systems otherwise negative/unremarkable. Family history: Mother had MS near the age of 60. Social history: Smokes 1 cigar per day. He was consuming 4-6 alcoholic beverages daily (3-4 glasses a wine and 1 or 2 shots of vodka) but just recently reduced to 2 or 3 glasses of wine every other day. He lives at home with his . He has 2 daughters. Grandchildren. 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 He was unaccompanied in his hospital room. Allergies Allergy/AdvReac Type Severity Reaction Status Date / Time Penicillins Allergy Unknown RASH Verified 01/31/22 12:57 codeine AdvReac Unknown NAUSEA & Verified 01/31/22 12:57 VOMITING Home Medications Medication Instructions Recorded Confirmed Type acetaminophen 500 mg tablet 1,000 mg PO Q6H PRN 11/24/19 01/31/22 History (Tylenol Extra Strength) escitalopram oxalate 20 mg tablet 20 mg PO QAM #90 tab 03/31/21 01/31/22 Rx atorvastatin 40 mg tablet 40 mg PO HS #90 tab 10/27/21 01/31/22 Rx allopurinol 300 mg tablet 150 mg PO QAM #45 tab 10/30/21 01/31/22 Rx tamsulosin 0.4 mg capsule 0.4 mg PO HS #90 cap 11/10/21 01/31/22 Rx apixaban 5 mg tablet 5 mg PO BID #180 tab 12/08/21 01/31/22 Rx hydroxyzine HCl 25 mg tablet 25 mg PO BID PRN #30 tab 01/08/22 01/31/22 Rx cholecalciferol (vitamin D3) 25 75 mcg PO QAM 01/31/22 01/31/22 History mcg (1,000 unit) capsule (Vitamin D3) melatonin 3 mg tablet 3 mg PO HS PRN 01/31/22 01/31/22 History metoprolol tartrate 50 mg tablet 50 mg PO BID #60 tab 02/01/22 Rx Patient History Medical History Anxiety Benign prostatic hyperplasia CAD (coronary artery disease) Central sleep apnea Cigar smoker Complex sleep apnea syndrome Ganglion cyst Gout, joint Heavy alcohol use Hyperlipidemia LDL goal <70 Lymphopenia Non-occlusive coronary artery disease Osteoarthritis Permanent atrial fibrillation Skin cancer, basal cell Surgical History History of arthroscopic knee surgery S/P appendectomy S/P bilateral hip replacements S/P vasectomy Family History Mother Heart disease Hypertension Stroke Other Myocardial infarction Denies family history of Ovarian cancer Prostate cancer Breast cancer Colorectal cancer Social History (Updated 11/02/21 @ 13:03 by Jimmy Juárez) Smoking Status: Current some day smoker Tobacco Type: Cigars Cigarettes Per Day: 1 cigar a day in summer and twice a week in winter; Second Hand Exposure: No; Hx Alcohol Use: Yes Alcohol type: wine Alcohol Intake Frequency: 4 or More x per/Week Alcohol Intake Frequency Comment: 20 per week Hx Substance Use: No Preferred Language: Serbian Communication Ability: Effective Visual Impairment: Limited Hearing Ability: Hard of Hearing 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: No Beliefs That Will Affect Care: None marital status: Current Living Situation: Spouse current occupational status: 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 Alert and oriented. HEENT: Anicteric sclera. Neck: No JVD. No bruits. Normal carotid upstrokes bilaterally. Cardiac: PMI was nondisplaced. No ventricular heave. Irregularly irregular in the 90-100s. Normal S1-S2. No murmurs, rubs, or gallops. Pulmonary: Clear to auscultation bilaterally without wheezes, rales, or rhonchi. Abdomen: Soft, nontender, nondistended, with normoactive bowel sounds. No bruits noted. Extremities: 2+ radial pulses bilaterally. 2+ posterior tibialis pulses bilaterally. No edema or cyanosis. Psychiatric: Affect appears appropriate. Chest: Nontender to palpation. Results & Data ([facility]) Vital Signs (Past 12 Hours) Vital Signs Temp Pulse Pulse Resp BP Pulse Ox 02/01/22 08:00 37.0 C 116 H 18 111/61 94 02/01/22 03:36 36.8 C 101 H 18 102/74 94 01/31/22 23:41 36.9 C 88 18 118/84 95 01/31/22 22:57 93 H Laboratory Results Laboratory Results - last 24 hr 01/31/22 01/31/22 01/31/22 10:05 10:05 10:05 WBC 8.79 RBC 4.40 L Hgb 14.9 Hct 41.5 L MCV 94.3 MCH 33.9 MCHC 35.9 RDW Std Deviation 46.4 H RDW Coeff of Stefany 13.5 Plt Count 159 MPV 10.2 Immature Gran % (Auto) 0.1 Neut % (Auto) 86.2 Lymph % (Auto) 7.3 [place] % (Auto) 5.8 Eos % (Auto) 0.5 Baso % (Auto) 0.1 Neut # (Auto) 7.58 H Lymph # (Auto) 0.64 L [place] # (Auto) 0.51 Eos # (Auto) 0.04 Baso # (Auto) 0.01 Immature Gran # (Auto) 0.01 D-Dimer 450 Sodium 140 Potassium 3.9 Chloride 105 Carbon Dioxide 25 Anion Gap 10 BUN 17 Creatinine 1.31 Est Cr Clr Drug Dosing 50.3 Est GFR ( Amer) 60.9 Est GFR (Non-Af Amer) 52.5 BUN/Creatinine Ratio 13.0 Glucose 146 H Calcium 9.4 Magnesium Total Bilirubin 1.4 H AST 15 ALT 21 Alkaline Phosphatase 111 H Troponin I < 0.03 Total Protein 7.1 Albumin 4.3 Globulin 2.8 Albumin/Globulin Ratio 1.5 Lipase 33 SARS-CoV-2, RNA, NAAT 01/31/22 01/31/22 01/31/22 13:06 14:11 18:50 WBC RBC Hgb Hct MCV MCH MCHC RDW Std Deviation RDW Coeff of Stefany Plt Count MPV Immature Gran % (Auto) Neut % (Auto) Lymph % (Auto) [place] % (Auto) Eos % (Auto) Baso % (Auto) Neut # (Auto) Lymph # (Auto) [place] # (Auto) Eos # (Auto) Baso # (Auto) Immature Gran # (Auto) D-Dimer Sodium Potassium Chloride Carbon Dioxide Anion Gap BUN Creatinine Est Cr Clr Drug Dosing Est GFR ( Amer) Est GFR (Non-Af Amer) BUN/Creatinine Ratio Glucose Calcium Magnesium 1.9 Total Bilirubin AST ALT Alkaline Phosphatase Troponin I < 0.03 < 0.03 Total Protein Albumin Globulin Albumin/Globulin Ratio Lipase SARS-CoV-2, RNA, NAAT NEGATIVE 02/01/22 02/01/22 06:16 06:16 WBC 5.56 RBC 3.95 L Hgb 13.4 L Hct 36.9 L MCV 93.4 MCH 33.9 MCHC 36.3 H RDW Std Deviation 46.3 RDW Coeff of Stefany 13.5 Plt Count 138 MPV 10.4 Immature Gran % (Auto) 0.0 Neut % (Auto) 66.0 Lymph % (Auto) 22.8 [place] % (Auto) 8.5 Eos % (Auto) 2.3 Baso % (Auto) 0.4 Neut # (Auto) 3.67 Lymph # (Auto) 1.27 [place] # (Auto) 0.47 Eos # (Auto) 0.13 Baso # (Auto) 0.02 Immature Gran # (Auto) 0.00 D-Dimer Sodium 139 Potassium 4.2 Chloride 108 H Carbon Dioxide 24 Anion Gap 7 BUN 18 Creatinine 1.29 Est Cr Clr Drug Dosing 50.9 Est GFR ( Amer) 62.0 Est GFR (Non-Af Amer) 53.5 BUN/Creatinine Ratio 14.0 Glucose 101 H Calcium 8.8 Magnesium 2.0 Total Bilirubin AST ALT Alkaline Phosphatase Troponin I < 0.03 Total Protein Albumin Globulin Albumin/Globulin Ratio Lipase SARS-CoV-2, RNA, NAAT Diagnostic Findings Telemetry personally reviewed: Atrial fibrillation with resting heart rates mostly 90s to 100s. With conversation, heart rate into the 120s. No significant pause. ECGs personally reviewed: ECG 01/31/2022 at 10:57 a.m.: AFib 125 beats per minute. ECG 02/01/2022 at 5:56 a.m.: AFib 99 beats per minute. PVC versus aberrantly conducted complexes. Echo personally reviewed from 02/01/2022: Normal LV systolic function. This is preliminary review. Formal review to follow. Medications Administered Current Inpatient Medications Acetaminophen (Acetaminophen 325 Mg Tab) 650 mg PO Q4H PRN PRN Reason: Pain or Fever Stop: 03/02/22 15:28 Allopurinol (Allopurinol 300 Mg Tab) 150 mg PO QAM [facility] Stop: 03/03/22 08:59 Last Admin: 02/01/22 08:24 Dose: 150 mg Documented by: Apixaban (Apixaban 5 Mg Tablet) 5 mg PO BID [facility] Stop: 03/02/22 20:59 Last Admin: 02/01/22 08:24 Dose: 5 mg Documented by: Atorvastatin Calcium (Atorvastatin 40 Mg Tab) 40 mg PO HS [facility] Stop: 03/02/22 20:59 Last Admin: 01/31/22 20:00 Dose: 40 mg Documented by: Escitalopram Oxalate (Escitalopram Oxalate 20 Mg Tab) [address] [facility] Stop: 03/03/22 08:59 Last Admin: 02/01/22 08:24 Dose: 20 mg Documented by: Hydroxyzine HCl (Hydroxyzine Hcl 25 Mg Tab) 25 mg PO BID PRN PRN Reason: anxiety Stop: 03/02/22 15:28 Last Admin: 01/31/22 21:10 Dose: 25 mg Documented by: Folic Acid 1 mg/ Syringe 10 mls @ 5 mls[facility] Stop: 03/02/22 15:44 Last Admin: 02/01/22 08:23 Dose: 5 mls/min Documented by: Lorazepam (Lorazepam 2 Mg/1 Ml Vial) 1 mg IV ONE PRN; Protocol PRN Reason: EtoH Withdrawal AWSS 6-10 Stop: 03/02/22 15:28 Lorazepam (Lorazepam 2 Mg/1 Ml Vial) 1 mg IV UD PRN; Protocol PRN Reason: EtOH Withdrawl AWSS Score 6,7 Stop: 03/02/22 15:28 Lorazepam (Lorazepam 2 Mg/1 Ml Vial) 2 mg IV UD PRN; Protocol PRN Reason: EtOH Withdrawl AWSS Score 8,9 Stop: 03/02/22 15:28 Lorazepam (Lorazepam 2 Mg/1 Ml Vial) 3 mg IV ONCE PRN; Protocol PRN Reason: EtOH Withdrawl AWSS Score >=10 Stop: 03/02/22 15:28 Melatonin (Melatonin 3 Mg Tab) 6 mg PO HS PRN PRN Reason: Sleep Stop: 03/02/22 15:28 Last Admin: 01/31/22 21:10 Dose: 6 mg Documented by: Metoprolol Succinate (Metoprolol Succ 25mg Ext Rel Tab) [facility] Stop: 03/03/22 08:59 Last Admin: 02/01/22 08:24 Dose: 25 mg Documented by: Metoprolol Tartrate (Metoprolol Tartrate 1 Mg/Ml Vial) 5 mg IV Q4 PRN; Protocol PRN Reason: HR > 110 Stop: 03/02/22 15:28 Metoprolol Tartrate (Metoprolol Tartrate 50 Mg Tab) 50 mg PO BID [facility] Stop: 03/03/22 20:59 Metoprolol Tartrate (Metoprolol Tartrate 25 Mg Tab) 25 mg PO NOW STA Stop: 02/01/22 10:26 Tamsulosin HCl (Tamsulosin Hcl 0.4 Mg Cap) 0.4 mg PO HS [facility] Stop: 03/02/22 20:59 Last Admin: 01/31/22 20:01 Dose: 0.4 mg Documented by: Thiamine HCl (Thiamine Hcl 100 Mg Tab) 100 mg PO QAM [facility] Stop: 03/02/22 15:59 Last Admin: 02/01/22 08:25 Dose: 100 mg Documented by: PG Care Time/CCT Total # of Minutes Spent Total Time Spent with Patient: Total time spent is greater than 50% in coordination of care (as documented) at patient's floor/unit and/or counseling patient: Coding Level of Care Code 08508 Office/Outpt Visit, Est Diagnoses Permanent atrial fibrillation I48.21 Left-sided chest pain R07.9 HTN (hypertension) I10 Hypertension type: primary hypertension CAD (coronary artery disease) I25.10 (1) HTN (hypertension) Hypertension type: primary hypertension Qualified Code(s): I10 - Essential (primary) hypertension
--- NOTE | 2022-02-01 18:24 | Discharge Summary ---
Date of Service February 01, 2022 Admission HPI Per Admitting Provider This patient is a 76-year-old male with a history of atrial fibrillation on Eliquis, HTN, depression/anxiety, gout, ISABEL on CPAP, CKD stage III, hyperlipidemia, alcohol abuse, and BPH who presents to the ER with substernal and left-sided chest pain radiating to the left shoulder. He reports he had substernal chest pressure pretty much all day long yesterday along with some headache in the back of his head-both things went away after taking Tylenol in the afternoon. He did not check his blood pressure or heart rate during the day yesterday. He has had no associated shortness of breath or nausea, no abdominal pain. Then, last night he woke up with pretty severe left shoulder pain at 1 in the morning but no associated chest pain. The pain was not worse with movement. He took some Tylenol again and went back to sleep. When he woke up, he was still having some left shoulder pain although slightly improved. And he decided to eat breakfast and then come to the ER. By the time he got to the ER, his left shoulder pain had pretty much resolved and when I saw him, it was completely resolved. In the ER, he was found to have rapid atrial fibrillation with a rate in the 120s and a soft blood pressure of 93/62. He was given a total of 7.5 mg of IV Lopressor and his rate was improved to the low 100s and blood pressures improved. As per cardiology notes, he has a tendency to have bradycardia and mention was made of possible pacemaker if needed in the future for tachybradycardia syndrome. He does report that his Toprol-XL dose was decreased a couple of months ago down to 25 mg once daily but previous dose was 37.5 mg in the morning 25 in the evening. He reports he drinks 2 to 3 glasses of wine every other night in an effort to cut down from heavy drinking previously after a fall down the stairs while intoxicated last year. His last drink was on the evening of 01/28. He is very compliant with using his CPAP every night. His troponin was negative and ECG was without ischemic changes but did show rapid atrial fibrillation. D-dimer was negative, electrolytes were otherwise stable except magnesium was not drawn at the time of admission. Chest x-ray was negative. He will be admitted for rapid atrial fibrillation and further evaluation of left-sided shoulder pain and substernal chest pain. Principal Diagnosis Atrial fibrillation rapid ventricular response Discharge Exam The patient appeared well Vital signs as documented. Lungs are clear to auscultation and appear unlabored Cardiac exam, irregular but rate controlled except with exertion Abdominal exam reveals normal bowel sounds, soft non tender, no masses Extremities are nonedematous and both pedal pulses are normal. Neurologic exam is alert and oriented, no focal loss of strength or sensation Skin is without bruises or rashes Psychologically is without concerns for anxiety or depression. Discharge Data Allergies Allergy/AdvReac Type Severity Reaction Status Date / Time Penicillins Allergy Unknown RASH Verified 01/31/22 12:57 codeine AdvReac Unknown NAUSEA & Verified 01/31/22 12:57 VOMITING Consultations 01/31/22 15:04 ED Decision to Admit Stat 01/31/22 15:29 Consult Cardiology Routine Hospital Course (1) Atrial fibrillation with rapid ventricular response: With a history of permanent atrial fibrillation. Here with substernal chest pressure that lasted all day and now development of left shoulder pain, found to be in rapid atrial fibrillation in the ER His metoprolol dose was decreased but it was at least a couple of months ago He does drink alcohol fairly heavily, has actually cut down from previous and has not had a drink in almost 72 hours He is compliant with his CPAP at nighttime Cardiology saw the patient wishes to change him to metoprolol tartrate 50 twice daily additional dosing was given in the hospital he walked around his heart rates never went above mid 100s subsequently he will be discharged with 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 continue to tartrate and holding the succinate -Continue home apixaban for anticoagulation (2) Left-sided chest pain: With substernal chest pressure all day yesterday relieved with Tylenol and left shoulder pain here now also resolved with rate controlled atrial fibrillation Troponin negative x4 making acute coronary syndrome ruled out ECG without acute ischemic changes rapid rate is similar to stress, 85% of MPHR is 122 and he reached that level (3) Complex sleep apnea syndrome: He will bring in his CPAP from home (4) Heavy alcohol use: Used to drink much more heavily until he fell down the steps while intoxicated last year Now drinks 3 glasses of wine every other night but last drink was now on 01/28 May be some component of tachycardia related to alcohol withdrawal No alcohol withdrawals noted while the patient was inpatient (5) HTN (hypertension): Blood pressures are controlled to soft on arrival, improved with control of rapid atrial fibrillation Continue metoprolol as above (6) Gout, joint: No acute issues Continue allopurinol for prevention (7) Anxiety: No acute issues Continue Lexapro and hydroxyzine as needed Melatonin for sleep (8) Benign prostatic hyperplasia: Continue home tamsulosin No acute issues (9) Hyperlipidemia LDL goal <70: Continue statin (10) Permanent atrial fibrillation: Full code Total Time Total Time Spent Total Time Spent (In Minutes): Discharge 30 including personal discussion with Dr. Nath about medications Discharge Plan Discharge Items Patient Disposition: Home - Self-Care Reason For Visit: CHEST PAIN,AFIB RVR Discharge Diagnosis: atrial fibrillation rapid response controlled by medicine Activity: Resume your previous activity Non-emergency contact: Primary Care Provider and Scientific Editor Call non-emergency contact if: your symptoms worsen and you have a fever Follow-up/Referrals: Heri Clinton PA-C [Physician Ice Handler] - 02/09/22 3:00 pm Loyd Boone MD [Physician] - Mago Hui MD [Primary Care Provider] - 02/16/22 1:30 pm Diet: Regular Addtl Attending Provider Instructions: Atrial fibrillation is an irregular and often fast heartbeat. Treating this condition is important for several reasons. It can cause blood clots, which can travel from your heart to your brain and cause a stroke. If you have a fast heartbeat, you may feel light-headed, dizzy, and weak. An irregular heartbeat can also increase your risk for heart failure. Atrial fibrillation is often the result of another heart condition, such as high blood pressure or coronary artery disease. Making changes to improve your heart condition will help you stay healthy and active. Follow-up care is a dickerson part of your treatment and safety.Be sure to make and go to all appointments, and call your doctor or nurse call line if you are having problems. It's also a good idea to know your test results and keep a list of the medicines you take. How can you care for yourself at home? Medicines * Take your medicines exactly as prescribed. Call your doctor or nurse call line if you think you are having a problem with your medicine. You will get more details on the specific medicines your doctor prescribes. * If your doctor has given you a blood thinner to prevent a stroke, be sure you get instructions about how to take your medicine safely. Blood thinners can cause serious bleeding problems. * Do not take any [id number] drugs or natural health products without talking to your doctor first. Lifestyle changes * Do not smoke. Smoking can increase your chance of a stroke and heart attack. If you need help quitting, talk to your doctor about stop-smoking programs and medicines. These can increase your chances of quitting for good. * Eat a heart-healthy diet. * Stay at a healthy weight. Lose weight if you need to. * Limit alcohol to 3 drinks a day for men and 2 drinks a day for women. Too much alcohol can cause health problems. * Avoid colds and influenza (flu). Get a pneumococcal vaccine. If you have had one before, ask your doctor whether you need a second dose. Get a flu vaccine every fall. If you must be around people with colds or flu, wash your hands often. Activity * If your doctor recommends it, get more exercise. Walking is a good choice. Bit by bit, increase the amount you walk every day. Try for at least 2 hours a week. You also may want to swim, bike, or do other activities. Your doctor may suggest that you join a cardiac rehabilitation program so that you can have help increasing your physical activity safely. * Start light exercise if your doctor says it is okay. Even a small amount will help you get stronger, have more energy, and manage stress. Walking is an easy way to get exercise. Start out by walking a little more than you did in the hospital. Gradually increase the amount you walk. * When you exercise, watch for signs that your heart is working too hard. You are pushing too hard if you cannot talk while you are exercising. If you become short of breath or dizzy or have chest pain, sit down and rest immediately. * Check your pulse regularly. Place two fingers on the artery at the palm side of your wrist, in line with your thumb. If your heartbeat seems uneven or fast, talk to your doctor. When should you call for help? [id number] you think you may need emergency care. For example, call if: * You have symptoms of a heart attack. These may include: * Chest pain or pressure, or a strange feeling in the chest. * Sweating. * Shortness of breath. * Nausea or vomiting. * Pain, pressure, or a strange feeling in the back, neck, jaw, or upper belly or in one or both shoulders or arms. * Light-headedness or sudden weakness. * A fast or irregular heartbeat. Addtl Coal Chute Worker Provider Instructions: You have been started on a new dose of metoprolol it should be taken twice a day please start your evening dose on the evening of 02/01/2022 and you have a follow-up appointment with Dr. Boone to continue to discuss dose adjustments and treatment for atrial fibrillation. This dose of metoprolol is slightly different than the previous metoprolol you have been on it is not extended release. Please keep your old prescription on hand in case your outpatient providers can use it in the future to treat your atrial fibrillation Pending Studies at Discharge: No Stand-Alone Forms: My [facility] [place] Box Jump, Smoking Cessation Medications and DC Order Prescriptions: New metoprolol tartrate 50 mg Tablet 50 mg PO BID Qty: 60 RF: 4 Continued escitalopram oxalate 20 mg tablet 20 mg PO QAM Qty: 90 RF: 3 atorvastatin 40 mg tablet 40 mg PO HS Qty: 90 RF: 1 allopurinol 300 mg tablet 150 mg PO QAM Qty: 45 RF: 3 tamsulosin 0.4 mg capsule 0.4 mg PO HS Qty: 90 RF: 3 apixaban 5 mg tablet 5 mg PO BID Qty: 180 RF: 3 hydroxyzine HCl 25 mg tablet 25 mg PO BID PRN (Reason: anxiety) Qty: 30 RF: 2 acetaminophen [Tylenol Extra Strength] 500 mg Tablet 1,000 mg PO Q6H PRN (Reason: Pain) RF: 0 melatonin 3 mg Tablet 3 mg PO HS PRN (Reason: Sleep) RF: 0 cholecalciferol (vitamin D3) [Vitamin D3] 25 mcg (1,000 unit) Capsule 75 mcg PO QAM RF: 0 Discontinued metoprolol succinate 25 mg tablet extended release 24 hr 25 mg PO QAM RF: 0 Discharge Orders: Discharge Order (Routine); Ordered 02/01/22 Ordered By: Adrian Zamora Admission Data Admit Date/Time: 01/31/22 13:42 Attending Provider: Adrian Zamora Admit Provider: Jsoe R Maldonado Primary Care Provider: Mago Hui Other Providers: Danyelle Lainez ; Loyd Boone Other Interventions: Discharge Summary Assessment (RN) Last Done: 02/01/22 15:28 Coding Level of Care Code D/C DAY MANAGEMENT >30 MINS Diagnoses Atrial fibrillation with rapid ventricular response I48.91 Left-sided chest pain R07.9 Complex sleep apnea syndrome G47.31 Heavy alcohol use Z78.9 HTN (hypertension) I10 Hypertension type: primary hypertension Gout, joint M10.9 Anxiety F41.9 Benign prostatic hyperplasia N40.0 Lower urinary tract symptom presence: symptoms absent Hyperlipidemia LDL goal <70 E78.5 Permanent atrial fibrillation I48.21
[2022-02-01] MEDS ORDERED: METOPROLOL TARTRATE 50 MG TAB PO SCH (21:00)
--- NOTE | 2022-02-01 21:38 | XCELERA ---
[id number]
--- NOTE | 2022-02-02 05:45 | Electrocardiogram Report ---
Test Reason : Blood Pressure : / mmHG Vent. Rate : 125 BPM Atrial Rate : 111 BPM P-R Int : 000 ms QRS Dur : 094 ms QT Int : 324 ms P-R-T Axes : 000 038 036 degrees QTc Int : 467 ms Atrial fibrillation with rapid ventricular response Nonspecific T wave abnormality Abnormal ECG When compared with ECG of 31-DEC-2020 00:57, Vent. rate has increased BY 41 BPM Confirmed by Nathan Nath ([id number]) on 02/02/2022 5:45:13 AM Referred By: REFERRED SELF Confirmed By:Nathan Nath
--- NOTE | 2022-02-02 06:24 | Electrocardiogram Report ---
Test Reason : Blood Pressure : / mmHG Vent. Rate : 099 BPM Atrial Rate : 074 BPM P-R Int : 000 ms QRS Dur : 090 ms QT Int : 370 ms P-R-T Axes : 000 047 031 degrees QTc Int : 474 ms Atrial fibrillation with premature ventricular or aberrantly conducted complexes Abnormal ECG When compared with ECG of 31-JAN-2022 10:57, No significant change was found Confirmed by Nathan Nath ([id number]) on 02/02/2022 6:23:33 AM Referred By: REFERRED SELF Confirmed By:Nathan Nath
== END 2022-02-01 15:48 | disposition home or self-care (01) ==
LOC: 2E 10:41 → ED 10:41 → SUATTDRO 13:42 → 2E 15:00

== ENCOUNTER 2022-04-06 22:44 | Observation (INO) ==
--- NOTE | 2022-04-06 22:59 | Emergency Department Note ---
Impression & Plan Atrial fibrillation with rapid ventricular response, Chest pain ADMIT ED Provider Note HPI: The patient is a 76-year-old gentleman with history of atrial fibrillation, on Eliquis, presents the emergency department with chief complaint of chest pain. Patient states that he has had some chest discomfort that is substernal in nature that has been ongoing for the past 2 days. Patient states the pain is been relatively constant. Patient states the pain does worsen with deep breathing, he denies any new sensation of dyspnea. Patient states currently his pain would be rated at a 2 out of 10, on arrival here to the ED he is noted to be tachycardic on my assessment in the low 100s with noted atrial fibrillation. He is saturating well on room air, he is afebrile on presentation. ROS: -Cardio: Chest pain *10 point review systems was conducted and is otherwise negative unless stated above *Outpatient medications and allergy history reviewed PE: General: Alert, NAD HEENT: Normocephalic, atraumatic Eyes: Extraocular eye movement is intact, no scleral erythema Pulmonary: Clear to auscultation bilaterally, no wheezing Cardio: Tachycardic rate with a regular rhythm GI: Abdomen is soft, nontender : No suprapubic tenderness MSK: No evidence of trauma or malformation of the extremities, no edema Skin: No evidence of rash Neuro: Alert, no focal deficits Psychiatric: Cooperative equipment monitor phototypesetting: - An order was placed for continuous cardiac monitoring - Patient was noted to be in atrial fibrillation rhythm with rate of 118 EKG: Rate: 111 Rhythm: Atrial fibrillation Intervals: Within normal limits Time: 2252 ST changes: No ST elevation Medical Decision Making: Patient presented to the emergency department with a chief complaint of chest pain. He states is been ongoing for several days. EKG shows atrial fibrillation with RVR, rate of 111, patient has had some poor rate control here in the ED with heart rates in the 110s, his troponin is negative x1, chest x-ray does not show any evidence of acute abnormality per my interpretation. Patient is saturating well on room air here in the ED, blood pressure remained stable. Patient does have a history of similar types of chest pain, he was evaluated this past January by cardiology during inpatient stay, his chest pain was not thought to be cardiac in nature, it is similar nature today, delta troponin therefore was obtained and is also negative. On my reassessment following mo rphine and a GI cocktail, patient states he feels some chest discomfort still. States he does not feel comfortable with discharge. His rate remains somewhat elevated when he is awake and talking, when he is sleeping it is almost normal but when he wakes up it jumps into the 120s at times. He will therefore be given a dose of diltiazem as his blood pressure has been stable. Given that the patient is still having some chest discomfort I did discuss the case with the on-call hospitalist, Dr. Diaz, patient will be admitted to a telemetry bed for further management. Critical care time: 32 minutes -Stabilization of tachyarrhythmia, atrial fibrillation with RVR, requiring IV rate control medications for improvement, time spent at the bedside, arrangement of admission Diagnosis: 1. Atrial fibrillation with RVR 2. Chest pain Disposition: Admission Theodoer Hawkins DO Emergency Medicine Past Med/Surg History Medical History (Updated 04/07/22 @ 02:32 by Theodore Hawkins DO) Anxiety Benign prostatic hyperplasia CAD (coronary artery disease) Central sleep apnea Chest pain LAST MONTH [facility] ED - ELEVATED HEART RATE - MEDICATED FOR AND METOPROLOL CHANGED FROM SUCCINATE TO TARTRATE. Cigar smoker Complex sleep apnea syndrome MACHINE,"VARIABLE SOMETHING" Elevated serum creatinine STABLE Gout, joint HX Heavy alcohol use History of anesthesia reaction NEEDED A SECOND DOSE OF ANESTHESIA FOR CATARACT SX PER PT - WAS ASLEEP ALMOST THE WHOLE DAY AFTER THAT DR ELDRIDGE History of colonic polyps BENIGN Influenza A DECEMBER OR JANUARY 2022 - NO RESIDUALS Nocturia Non-occlusive coronary artery disease Osteoarthritis Permanent atrial fibrillation DX 20-30 YR AGO, NO HX CARDIOVERSION Skin cancer, basal cell HX Surgical History (Updated 03/11/22 @ 12:17 by Rip Tang RN) History of arthroscopic knee surgery History of cardiac cath 20 YR AGO, NO STENT(S) History of cataract surgery LEFT History of colonoscopy History of revision of total replacement of right hip joint History of vocal cord polypectomy Hx of endoscopic sinus surgery X2 S/P appendectomy S/P bilateral hip replacements S/P vasectomy Family History Mother Heart disease Hypertension Stroke Other Myocardial infarction Denies family history of Ovarian cancer Prostate cancer Breast cancer Colorectal cancer Social History Smoking Status: Never smoker Tobacco Type: Cigars Cigarettes Per Day: ABOUT ONE A DAY (ADVISED NPO); Second Hand Exposure: No; Hx Alcohol Use: Yes Alcohol type: wine Alcohol Intake Frequency: 4 or More x per/Week Alcohol Intake Frequency Comment: 20 per week Hx Substance Use: No Preferred Language: Estonian Communication Ability: Effective Visual Impairment: Limited Hearing Ability: Hard of Hearing 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: No Beliefs That Will Affect Care: None marital status: Current Living Situation: Spouse current occupational status: 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 have: 2 Feels Safe at Home: Yes Childhood Exposure to Second-Hand Smoke: No caffeine: Yes (1 or 2 cup of coffee a day) Dental Care, Regularly: Yes Physical Activity Frequency: 1-2 Times per Week Physical Activity Frequency Comment: 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 and pickle ball twice a week Seatbelt Use: always Sunscreen Use: Yes (sometimes) Assistive Devices: CPAP and Glasses Allergies Allergies Allergy/AdvReac Type Severity Reaction Status Date / Time Penicillins Allergy Unknown RASH Verified 04/07/22 02:22 codeine AdvReac Unknown NAUSEA & Verified 04/07/22 02:22 VOMITING Home Meds Home Medications Medication Instructions Recorded Confirmed acetaminophen 500 mg tablet 1,000 mg PO UD PRN 11/24/19 04/07/22 (Tylenol Extra Strength) cholecalciferol (vitamin D3) 25 75 mcg PO QAM 01/31/22 04/07/22 mcg (1,000 unit) capsule (Vitamin D3) melatonin 3 mg tablet 5 mg PO HS PRN 01/31/22 04/07/22 peg 3350-electrolytes 236 1 ml PO UD PRN 03/11/22 04/07/22 gram-22.74 gram-6.74 gram-5.86 gram solution (GaviLyte-G) escitalopram oxalate 20 mg tablet 20 mg PO QPM 04/07/22 04/07/22 Previous Rx's Medication Instructions Recorded atorvastatin 40 mg tablet 40 mg PO HS #90 tab 10/27/21 allopurinol 300 mg tablet 150 mg PO QAM #45 tab 10/30/21 tamsulosin 0.4 mg capsule 0.4 mg PO HS #90 cap 11/10/21 apixaban 5 mg tablet 5 mg PO BID #180 tab 12/08/21 hydroxyzine HCl 25 mg tablet 25 mg PO BID PRN #30 tab 01/08/22 metoprolol tartrate 50 mg tablet 50 mg PO BID #60 tab 02/01/22 Results & Data (ED) Vital Signs Vital Signs - 24 hr 04/06/22 22:45 04/06/22 22:56 04/06/22 22:59 Temperature 36.6 C Temperature Source Temporal Artery Scan Pulse Rate 132 H 101 H Pulse Rate [Apical] 101 H Pulse Rhythm Regular Pulse Rhythm [Apical] Irregular Pulse Strength [Apical] Respiratory Rate 18 20 Respiratory Effort / Characteristics Non-Labored Spontaneous Non-Labored Spontaneous Respiratory Depth Normal Normal Respiratory Pattern Regular Blood Pressure 163/67 H Blood Pressure [Right Arm] 108/73 Blood Pressure Mean 99 Blood Pressure Mean [Right Arm] 84 Blood Pressure Position Sitting Blood Pressure Position [Right Arm] Semi-fowlers Pulse Oximetry 98 100 95 Oxygen Delivery Method Room Air Room Air Room Air Sepsis Recent Fever Within 48 Hours No Sepsis New/Unexplained Change in Mental Status N/A Sepsis Action Taken by Nursing No Action Required 04/07/22 00:44 04/07/22 02:00 Temperature Temperature Source Pulse Rate Pulse Rate [Apical] 105 H 117 H Pulse Rhythm Pulse Rhythm [Apical] Regular Regular Pulse Strength [Apical] Normal Normal Respiratory Rate 16 18 Respiratory Effort / Characteristics Non-Labored Spontaneous Non-Labored Spontaneous Respiratory Depth Normal Normal Respiratory Pattern Regular Regular Blood Pressure Blood Pressure [Right Arm] 119/70 115/74 Blood Pressure Mean Blood Pressure Mean [Right Arm] 86 87 Blood Pressure Position Blood Pressure Position [Right Arm] Semi-fowlers Semi-fowlers Pulse Oximetry 95 95 Oxygen Delivery Method Room Air Room Air Sepsis Recent Fever Within 48 Hours Sepsis New/Unexplained Change in Mental Status Sepsis Action Taken by Nursing Laboratory Data Result diagrams: 04/06/22 22:57 04/07/22 00:06 Lab Results 04/06/22 04/06/22 04/06/22 Range/Units 22:57 22:57 22:57 WBC 8.58 (4.8-10.8) K/uL RBC 4.46 L (4.7-6.1) M/uL Hgb 15.3 (14.0-18.0) g/dL Hct 42.6 (42-52) % MCV 95.5 (80-100) fL MCH 34.3 H (25-34) pg MCHC 35.9 (32-36) g/dL RDW Std Deviation 45.7 (36.4-46.3) fL RDW Coeff of Stefany 13.1 (11.5-14.5) % Plt Count 150 (130-400) K/uL MPV 10.5 H (7.4-10.4) fL Immature Gran % (Auto) 0.2 % Neut % (Auto) 67.7 % Lymph % (Auto) 19.2 % Swain % (Auto) 11.9 % Eos % (Auto) 0.9 % Baso % (Auto) 0.1 % Neut # (Auto) 5.80 (1.4-6.5) K/uL Lymph # (Auto) 1.65 (1.2-3.4) K/uL Swain # (Auto) 1.02 H (0.11-0.59) K/uL Eos # (Auto) 0.08 (0-0.5) K/uL Baso # (Auto) 0.01 (0-0.2) K/uL Immature Gran # (Auto) 0.02 (0.00-0.02) K/uL PT 10.7 (9.0-12.0) Seconds INR 1.0 (0.9-1.1) APTT 30.6 (21.0-31.0) Seconds PTT Ratio 1.1 Sodium Cancelled Potassium Cancelled Chloride Cancelled Carbon Dioxide Cancelled Anion Gap Cancelled BUN Cancelled Creatinine Cancelled Est Cr Clr Drug Dosing Cancelled Est GFR ( Amer) Cancelled Est GFR (Non-Af Amer) Cancelled BUN/Creatinine Ratio Cancelled Glucose Cancelled Calcium Cancelled Total Bilirubin Cancelled AST Cancelled ALT Cancelled Alkaline Phosphatase Cancelled Troponin I High Sens 7.2 (0-20) pg/ml Total Protein Cancelled Albumin Cancelled Globulin Cancelled Albumin/Globulin Ratio Cancelled Lipase Cancelled 04/07/22 04/07/22 Range/Units 00:06 01:08 WBC (4.8-10.8) K/uL RBC (4.7-6.1) M/uL Hgb (14.0-18.0) g/dL Hct (42-52) % MCV (80-100) fL MCH (25-34) pg MCHC (32-36) g/dL RDW Std Deviation (36.4-46.3) fL RDW Coeff of Stefany (11.5-14.5) % Plt Count (130-400) K/uL MPV (7.4-10.4) fL Immature Gran % (Auto) % Neut % (Auto) % Lymph % (Auto) % Swain % (Auto) % Eos % (Auto) % Baso % (Auto) % Neut # (Auto) (1.4-6.5) K/uL Lymph # (Auto) (1.2-3.4) K/uL Swain # (Auto) (0.11-0.59) K/uL Eos # (Auto) (0-0.5) K/uL Baso # (Auto) (0-0.2) K/uL Immature Gran # (Auto) (0.00-0.02) K/uL PT (9.0-12.0) Seconds INR (0.9-1.1) APTT (21.0-31.0) Seconds PTT Ratio Sodium 137 Potassium 4.1 Chloride 105 Carbon Dioxide 25 Anion Gap 7 BUN 22 Creatinine 1.30 Est Cr Clr Drug Dosing 49.9 Est GFR ( Amer) 61.4 Est GFR (Non-Af Amer) 53.0 BUN/Creatinine Ratio 16.9 Glucose 103 H Calcium 9.2 Total Bilirubin 1.2 H AST 17 ALT 25 Alkaline Phosphatase 111 H Troponin I High Sens 7.0 (0-20) pg/ml Total Protein 6.7 Albumin 4.1 Globulin 2.6 Albumin/Globulin Ratio 1.6 Lipase 45 Administered Medications Discontinued Medications Al Hydrox/Mg Hydrox/Simethicone (Gi Cocktail Ed Use) 1 dose PO ONE ONE Stop: 04/07/22 01:14 Last Admin: 04/07/22 01:30 Dose: 1 dose Documented by: [id number] Morphine Sulfate (Morphine Sulfate 4 Mg/Ml 1 Ml Carp\\Vial) 4 mg IV NOW STA Stop: 04/07/22 01:14 Last Admin: 04/07/22 01:36 Dose: 4 mg Documented by: [id number] Ondansetron HCl (Ondansetron Inj 2 Mg/Ml 2 Ml Vial) 4 mg IV NOW STA Stop: 04/07/22 01:14 Last Admin: 04/07/22 01:34 Dose: 4 mg Documented by: [id number] Discharge Plan Visit Data Chief Complaint: Chest Pain Stated Complaint: CHEST PAIN, HURTS TO BREATHE ED Provider: Theodore Hawkins Discharge Problem: Atrial fibrillation with rapid ventricular response, Chest pain Forms Stand Alone Forms: [facility] Prescriptions Prescriptions: No Action atorvastatin 40 mg tablet 40 mg PO HS Qty: 90 RF: 1 allopurinol 300 mg tablet 150 mg PO QAM Qty: 45 RF: 3 tamsulosin 0.4 mg capsule 0.4 mg PO HS Qty: 90 RF: 3 apixaban 5 mg tablet 5 mg PO BID Qty: 180 RF: 3 hydroxyzine HCl 25 mg tablet 25 mg PO BID PRN (Reason: anxiety) Qty: 30 RF: 2 acetaminophen [Tylenol Extra Strength] 500 mg Tablet 1,000 mg PO UD PRN (Reason: Pain) RF: 0 escitalopram oxalate 20 mg tablet 20 mg PO QPM RF: 0 melatonin 3 mg Tablet 5 mg PO HS PRN (Reason: Sleep) RF: 0 cholecalciferol (vitamin D3) [Vitamin D3] 25 mcg (1,000 unit) Capsule 75 mcg PO QAM RF: 0 metoprolol tartrate 50 mg Tablet 50 mg PO BID Qty: 60 RF: 4 peg 3350-electrolytes [GaviLyte-G] 236-22.74-6.74 -5.86 gram Recon Soln 1 ml PO UD PRN (Reason: COLONOSCOPY PREP) RF: 0 Referrals Referrals: Mago Hui MD [Primary Care Provider] - Discharge Problem: Chest pain Qualifiers: Chest pain type: unspecified Qualified Code(s): R07.9 - Chest pain, unspecified
[2022-04-06 23:12] LABS: Basophils # (auto) 0.01 K/uL (0-0.2); Basophils % (auto) 0.1 %; Eosinophils # (auto) 0.08 K/uL (0-0.5); Eosinophils % (auto) 0.9 %; Hematocrit (blood only) 42.6 % (42-52); Hemoglobin 15.3 g/dL (14.0-18.0); Immature Granulocytes # (auto) 0.02 K/uL (0.00-0.02); Immature Granulocytes % (auto) 0.2 %; Lymphocytes # (auto) 1.65 K/uL (1.2-3.4); Lymphocytes % (auto) 19.2 %; Mean Corpuscular Hemoglobin 34.3 pg (25-34); Mean Corpuscular Hgb Conc 35.9 g/dL (32-36); Mean Corpuscular Volume 95.5 fL (80-100); Mean Platelet Volume 10.5 fL (7.4-10.4); Monocytes # (auto) 1.02 K/uL (0.11-0.59); Monocytes % (auto) 11.9 %; Neutrophils % (auto) 67.7 %; Platelet Count 150 K/uL (130-400); RDW Coefficient of Variation 13.1 % (11.5-14.5); RDW Standard Deviation 45.7 fL (36.4-46.3); Red Blood Count 4.46 M/uL (4.7-6.1); White Blood Count 8.58 K/uL (4.8-10.8)
[2022-04-06 23:31] LABS: Partial Thromboplastin Ratio 1.1; Partial Thromboplastin Time 30.6 Seconds (21.0-31.0); Prothrombin Time 10.7 Seconds (9.0-12.0)
[2022-04-07 00:46] LABS: Albumin Globulin Ratio 1.6 (0.9-2); Albumin Level 4.1 gm/dl (3.4-5.0); BUN Creatinine Ratio 16.9 (10-20); Bilirubin,Total 1.2 mg/dl (0.2-1.0); Calcium 9.2 mg/dl (8.5-10.1); Creatinine Clr Calc Pharmacy 49.9 ml/min; Est GFR (African American) 61.4 ml/min; Globulin 2.6 gm/dl (2.5-4.0); Potassium 4.1 mmol/L (3.5-5.1); Total Protein 6.7 gm/dl (6.0-8.3)
[2022-04-07] MEDS ORDERED: ONDANSETRON INJ 2 MG/ML 2 ML VIAL IV STA (01:13)
[2022-04-07] MEDS ORDERED: MoRPHine SULFATE 4 MG/ML 1 ML CARP\\VIAL IV STA (01:13)
[2022-04-07] MEDS ORDERED: GI COCKTAIL ED USE PO ONE (01:13)
[2022-04-07] MEDS ORDERED: ASPIRIN CHEW 324 MG PO STA (02:20)
[2022-04-07] MEDS ORDERED: dilTIAZem HCl 5 MG/ML 5 ML VIAL IV STA (02:20)
[2022-04-07] MEDS ORDERED: ACETAMINOPHEN 500 MG TAB PO STA (03:21)
--- NOTE | 2022-04-07 03:36 | History & Physical Report ---
Date of Service April 07, 2022 Assessment & Plan (1) Atrial fibrillation with rapid ventricular response: Plan: Zack Ramos is a 76-year-old male with past medical history of atrial fibrillation on Eliquis, hypertension, hyperlipidemia, depression/anxiety, ISABEL on CPAP, CKD stage III, alcohol abuse, BPH, gout who presents due to substernal and left-sided chest pain radiating to the neck. Chest pain Substernal left-sided chest pain radiating to the neck On arrival in A. fib with RVRhas had recent history of similar presentation EKG without current signs of ischemia Troponin negative x2 we will repeat another 6 hours after most recent Most likely related to RVR, rate improving could also be MSK related versus GI, though did not respond to GI cocktail With worsening on inspiration, will check D-dimer he is already on anticoagulation so unlikely that he would have developed DVT/PE Given morphine 4 mg IV x1 in ED did report improvement for some time, but discomfort returned shortly thereafter Will give acetaminophen, as he reports this has helped in the past; can consider spot doses of morphine if needed Management of A. fib as below Atrial fibrillation with RVR History of permanent A. fib on Eliquis, follows with Dr. Boone Recent hospitalization in January 2022 for similar complaints On discharge from that visit switch from Toprol-XL to metoprolol tartrate 50 mg p.o. twice daily Received diltiazem 10 mg x 1 in ED rates improved to mid 70s to low 90s Will continue metoprolol tartrate 50 mg p.o. twice daily for now Consult cardiology HTN (hypertension): Continue metoprolol as above Gout: Continue home allopurinol Anxiety: Continue Lexapro and hydroxyzine as needed Melatonin for sleep Benign prostatic hyperplasia: Continue home tamsulosin Hyperlipidemia: Continue statin DVT prophylaxis: On Eliquis Diet: Heart healthy Dispo: Admit to PCU CODE STATUS: Full (2) Chest pain: (3) Hyperlipidemia LDL goal <70: (4) Obstructive sleep apnea: (5) HTN (hypertension): (6) Benign prostatic hyperplasia: (7) Anxiety: History of Present Illness Primary Care Provider: Mago Hui MD Zack Ramos is a 76-year-old male with past medical history of atrial fibrillation on Eliquis, hypertension, hyperlipidemia, depression/anxiety, ISABEL on CPAP, CKD stage III, alcohol abuse, BPH, gout who presents due to substernal and left-sided chest pain radiating to the neck. He reports the pain started on Tuesday and has been coming and going intermittently ever since, with doses of Tylenol being helpful at times. Tonight he felt that the pain was more bothersome and he could not sleep with it, so he decided to come into the ED. He rates the pain at a 2 out of 10 and states it is worse with inspiration. He mentions, with regards to his neck, that he has had neck issues for some time. Earlier this week worked out with a personal banking advisor and was doing some exercises with bands with which she felt some right-sided neck discomfort, and has felt some neck tightness since then. He is able to feel some tenderness and tightness when palpating his neck, but unable to recreate chest pain when palpating. In the ED, patient was found to be in atrial fibrillation with heart rate up to 132 on arrival and then fluctuating between low 100s to 110s. He was given aspirin 324 mg x 1, GI cocktail, Zofran, and morphine 4 mg. He did not have resolution of his chest discomfort with this. He was then given a dose of diltiazem 10 mg x 1. Lab work showed normal blood counts, normal electrolytes with potassium of 4.1 and magnesium of 2.0. Troponins negative x2. At the time of my evaluation in the room, patient's heart rate fluctuates between mid 70s to low 90s on monitor. He denied shortness of breath, cough, fever, chills, abdominal pain, nausea, vomiting, headache, dizziness, vision changes, leg pain/swelling. Allergies Allergy/AdvReac Type Severity Reaction Status Date / Time Penicillins Allergy Unknown RASH Verified 04/07/22 02:22 codeine AdvReac Unknown NAUSEA & Verified 04/07/22 02:22 VOMITING Home Medications Medication Instructions Recorded Confirmed Type acetaminophen 500 mg tablet 1,000 mg PO UD PRN 11/24/19 04/07/22 History (Tylenol Extra Strength) atorvastatin 40 mg tablet 40 mg PO HS #90 tab 10/27/21 04/07/22 Rx allopurinol 300 mg tablet 150 mg PO QAM #45 tab 10/30/21 04/07/22 Rx tamsulosin 0.4 mg capsule 0.4 mg PO HS #90 cap 11/10/21 04/07/22 Rx apixaban 5 mg tablet 5 mg PO BID #180 tab 12/08/21 04/07/22 Rx hydroxyzine HCl 25 mg tablet 25 mg PO BID PRN #30 tab 01/08/22 04/07/22 Rx cholecalciferol (vitamin D3) 25 75 mcg PO QAM 01/31/22 04/07/22 History mcg (1,000 unit) capsule (Vitamin D3) melatonin 3 mg tablet 5 mg PO HS PRN 01/31/22 04/07/22 History metoprolol tartrate 50 mg tablet 50 mg PO BID #60 tab 02/01/22 04/07/22 Rx peg 3350-electrolytes 236 1 ml PO UD PRN 03/11/22 04/07/22 History gram-22.74 gram-6.74 gram-5.86 gram solution (GaviLyte-G) escitalopram oxalate 20 mg tablet 20 mg PO QPM 04/07/22 04/07/22 History Past Med/Surg History Medical History Anxiety Benign prostatic hyperplasia CAD (coronary artery disease) Central sleep apnea Chest pain LAST MONTH [facility] - ELEVATED HEART RATE - MEDICATED FOR AND METOPROLOL CHANGED FROM SUCCINATE TO TARTRATE. Cigar smoker Complex sleep apnea syndrome MACHINE,"VARIABLE SOMETHING" Elevated serum creatinine STABLE Gout, joint HX Heavy alcohol use History of anesthesia reaction NEEDED A SECOND DOSE OF ANESTHESIA FOR CATARACT SX PER PT - WAS ASLEEP ALMOST THE WHOLE DAY AFTER THAT DR ELDRIDGE History of colonic polyps BENIGN Influenza A DECEMBER OR JANUARY 2022 - NO RESIDUALS Nocturia Non-occlusive coronary artery disease Osteoarthritis Permanent atrial fibrillation DX 20-30 YR AGO, NO HX CARDIOVERSION Skin cancer, basal cell HX Surgical History History of arthroscopic knee surgery History of cardiac cath 20 YR AGO, NO STENT(S) History of cataract surgery LEFT History of colonoscopy History of revision of total replacement of right hip joint History of vocal cord polypectomy Hx of endoscopic sinus surgery X2 S/P appendectomy S/P bilateral hip replacements S/P vasectomy Family History Mother Heart disease Hypertension Stroke Other Myocardial infarction Denies family history of Ovarian cancer Prostate cancer Breast cancer Colorectal cancer Social History Smoking Status: Current every day smoker Tobacco Type: Cigars Cigarettes Per Day: ABOUT ONE A DAY (ADVISED NPO); Second Hand Exposure: No; Do You Dip or Chew Tobacco: No; Tobacco Cessation Education Requested by Patient: No Hx Alcohol Use: Yes Alcohol type: beer, wine and hard liquor Alcohol Intake Frequency: 4 or More x per/Week Alcohol Intake Frequency Comment: 20 per week Hx Substance Use: No Preferred Language: Greek Communication Ability: Effective Visual Impairment: Limited Hearing Ability: Hard of Hearing Manager Career Required: No Beliefs That Will Affect Care: None marital status: Current Living Situation: Spouse current occupational status: 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 have: 2 Other Information That Helps Us Care for You: No Feels Safe at Home: Yes Safety Concerns: Feels Safe At This Time Childhood Exposure to Second-Hand Smoke: No caffeine: Yes (1 or 2 cup of coffee a day) Dental Care, Regularly: Yes Physical Activity Frequency: 1-2 Times per Week Physical Activity Frequency Comment: personal banking advisor twice a week and pickle ball twice a week Seatbelt Use: always Sunscreen Use: Yes (sometimes) Assistive Devices: None Review of Systems Review of Systems: All systems reviewed & are unremarkable except as noted in HPI & below Physical Exam Physical Exam: GENERAL: A&Ox3. NAD. HEENT: PERRL, EOMI. Moist mucous membranes. NECK: No JVD. No lymphadenopathy. Bilateral tenderness to palpation posteriorly. CHEST/LUNGS: CTAB A/P. No crackles, wheezes, rales, rhonchi. No pain on palpation of chest. HEART: Irregularly irregular. No m/g/r. No carotid bruits. ABDOMEN: NT/ND, soft. BS+ x4 EXTREMITIES: No cyanosis, no clubbing, no edema SKIN: Warm and dry. No rashes or lesions. PSYCHIATRIC: Euthymic affect, no SI, no pressured speech, no hallucinations NEUROLOGIC: No FND. CN II-XII grossly intact. Results & Data Results & Data ([facility]) Vital Signs (Past 12 Hours) Vital Signs Temp Pulse Pulse Resp BP BP Pulse Ox 04/07/22 02:00 117 H 18 115/74 95 04/07/22 00:44 105 H 16 119/70 95 04/06/22 22:59 95 04/06/22 22:56 101 H 101 H 20 108/73 100 04/06/22 22:45 36.6 C 132 H 18 163/67 H 98 Code Status & VTE Plan VTE Prophylaxis Plan VTE Prophylaxis will be ordered: Yes Supervising Physician Co-Signing Physician Notes Patient seen and examined, chart reviewed, case discussed with Dr. Mando Dover and I agree with the assessment and plan as above. In brief, patient is a 76yo male with h/o AF on Eliquis, HTN, HLP, ISABEL on CPAP presenting with left sided substernal chest pain - radiation to neck, exacerbated by movement and deep breathing. Started day after playing pickle ball. AF wtih RVR on arrival to ER - rate of 132. Troponin x 2 negative EKG with no acute ischemic changes Exam is largely unremarkable +AF, rate controlled now Lungs CTA Abd soft, NT/ND Ext warm, well perfused, no edema No reproducible chest wall pain Labs and images reviewed Assessment/Plan -suspect musculoskeletal chest pain. Do not highly suspect ischemic chest pain -Repeat troponin -Check d-dimer -Remainder as above Resident Activity Tracking Resident Involvement: Resident Care Provided Care Provided: Adult Hospital Medicine (1) Benign prostatic hyperplasia Lower urinary tract symptom presence: symptoms absent Qualified Code(s): N40.0 - Benign prostatic hyperplasia without lower urinary tract symptoms (2) Chest pain Chest pain type: unspecified Qualified Code(s): R07.9 - Chest pain, unspecified (3) HTN (hypertension) Hypertension type: primary hypertension Qualified Code(s): I10 - Essential (primary) hypertension
[2022-04-07] MEDS ORDERED: ONDANSETRON INJ 2 MG/ML 2 ML VIAL IV PRN (05:21)
[2022-04-07] MEDS ORDERED: MELATONIN 3 MG TAB PO PRN (05:21)
[2022-04-07] MEDS ORDERED: ACETAMINOPHEN 500 MG TAB PO PRN (05:21)
[2022-04-07] MEDS ORDERED: hydrOXYzine HCl 25 MG TAB PO PRN (05:21)
[2022-04-07 06:27] LABS: D Dimer 1480 ug/L FEU (0-500)
--- NOTE | 2022-04-07 06:47 | Hospitalist Progress Note ---
Date of Service April 07, 2022 Assessment & Plan (1) Atrial fibrillation with rapid ventricular response: Plan: Zack Ramos is a 76-year-old male with PMHx significant for permanent atrial fibrillation (on Eliquis and Lopressor), hypertension, hyperlipidemia, depress ion/anxiety, ISABEL on CPAP, CKD stage III, mild alcohol use disorder, BPH, and gout who presented to [facility] ED on 04/06 for substernal chest pain; found to be in a-fib with RVR. Atrial Fibrillation with Rapid Ventricular Response; Hypotension H/o permanent a-fib with recent [facility] hospitalization in 01/2022. Presented with a-fib RVR, and is taking Eliquis/Lopressor as prescribed. Unclear trigger but may be 2/2 to chest pain as well as dental pain in context of recent dental procedure. - Received diltiazem 10 mg x 1 in ED rates remained in 110s while supine and 140s with sitting/standing, and BP down to 80s/40s likely due to additional dose - gave 1L NSS bolus this AM but BP remains 90s/50s and HR unchanged - will give another 1L bolus this afternoon - Cardiology consulted - appreciate recs - started Digoxin - 250mcg dose given at 12:00, with another 250mcg dose given at 1500 - plan for repeat 250mcg dose later this evening (~2100) if rates remain uncontrolled - continue metoprolol tartrate 50mg PO BID for now - chest pain control as specified below Atypical Chest Pain Substernal chest pain that is inspiratory/pleuritic in nature with worsening pain on palpation. EKG without ST/T changes and hsTroponin negative x3. Suspect this to be MSK chest pain such as costochondritis. A-fib RVR may be playing a role as well. Do not suspect ACS. - Note: patient had similar chest pain on previous a-fib admission without ACS at that time either - d-dimer elevated at 1480 - CTA chest without evidence for PE/dissection - s/p Aspirin 324mg x1 in ED - chest pain has been only partially responsive to Tylenol, Morphine x1, Dilaudid 0.25mg IV x1, Toradol 10mg IV x1 - continue with PRN Tylenol for pain - contact provider for breakthrough pain - Cardiology consulted as stated above HTN: Continue Lopressor as stated above Gout: Continue home allopurinol Anxiety: Continue Lexapro and hydroxyzine as needed Benign prostatic hyperplasia: Continue home tamsulosin Hyperlipidemia: Continue statin DVT prophylaxis: On Eliquis Diet: Heart healthy Dispo: PCU CODE STATUS: Full (2) Chest pain: (3) Hyperlipidemia LDL goal <70: (4) Obstructive sleep apnea: (5) HTN (hypertension): (6) Benign prostatic hyperplasia: (7) Anxiety: Admission and Anticipated Discharge Date Admission Date: April 07, 2022 Supervising Physician Co-Signing Physician Notes Attending attestation Pt seen and examined in concert with Dr. Navarro. In agreement with the documented findings as noted in the resident documentation with any exceptions or additions as noted here. Reports positional improvement of chest pain which is exquisitely reproducible with inspiration, direct pressure and some movement. Reporrts mild aching pain in the posterior neck, mostly on the right, mostly exacerbated by movement which responds to APAP. VS reviewed. On examination, S1/S2 nl tachycardic, irregular no MCG. CTAB. Abd NT/ND BS+ve Atrial fibrillation with RVR with hypotension - cardiology consult - minimal improvement with bolus and metoprolol. Digoxin addition as noted today with close monitoring, hydration. Atypical chest pain - likely MSK - APAP with intermittent opioid use for significant exacerbation, consider trial of Voltaren vs. ice therapy vs. colchicine. Else see resident documentation as noted. Subjective Patient confirms history mentioned in HPI section of H&P. Denies palpitations both before the hospital and currently. Reports that his substernal chest pain is pleuritic/inspirational in nature and worsens when he presses on his chest. Currently has 4/10 chest pain and is about to get Tylenol for the pain. Does report having a recent dental procedure with associated persistent tooth pain over the last week. Denies recent illnesses, fever/chills, N/V, abdominal pain, diarrhea, urinary symptoms or rash. Reports drinking ~1/2 bottle of wine every 2-3 days but no other alcohol and no smoking or drug use. Denies previous withdrawal symptoms with alcohol. Denies current anxiety, tremors, hallucinations. Last drink was ~3 days ago. Review of Systems Review of Systems: All systems reviewed & are unremarkable except as noted in HPI & below Physical Exam Physical Exam: General: A&Ox3. NAD. Cooperative. HEENT: Atraumatic, normocephalic. Pulm: CTAB A&P. -wheezes, -rales, -rhonchi. Symmetrical chest rise. No increase work of breathing. No respiratory distress. Cardiac: tachycardic rate, irregularly irregular rhythm, -mrg. Radial pulses intact and symmetrical. No LE edema. Chest: tenderness to palpation of costochondral joints. Abdominal: soft, non-tender, non-distended, BS x 4 Skin: warm, dry, no rash Results & Data Results & Data ([facility]) Vital Signs (Past 12 Hours) Vital Signs Temp Pulse Pulse Resp BP BP BP 04/07/22 06:00 37.2 C 113 H 18 100/77 04/07/22 05:21 37.2 C 97 H 20 87/49 L 04/07/22 04:52 102 H 18 107/68 04/07/22 04:00 108 H 18 96/63 L 04/07/22 02:00 117 H 18 115/74 04/07/22 00:44 105 H 16 119/70 04/06/22 22:59 04/06/22 22:56 101 H 101 H 20 108/73 04/06/22 22:45 36.6 C 132 H 18 163/67 H Pulse Ox Pulse Ox 04/07/22 06:00 89 L 04/07/22 05:21 92 91 04/07/22 04:52 93 04/07/22 04:00 94 04/07/22 02:00 95 04/07/22 00:44 95 04/06/22 22:59 95 04/06/22 22:56 100 04/06/22 22:45 98 Resident Activity Tracking Resident Involvement: Resident Care Provided Care Provided: Adult [facility] [place] (1) Benign prostatic hyperplasia Lower urinary tract symptom presence: symptoms absent Qualified Code(s): N40.0 - Benign prostatic hyperplasia without lower urinary tract symptoms (2) Chest pain Chest pain type: unspecified Qualified Code(s): R07.9 - Chest pain, unspecified (3) HTN (hypertension) Hypertension type: primary hypertension Qualified Code(s): I10 - Essential (primary) hypertension
--- NOTE | 2022-04-07 07:13 | XRay Report ---
XR chest 1V portable CLINICAL HISTORY: Chest Pain. COMPARISON STUDY: 01/31/2022 TECHNIQUE: 1 view of the chest FINDINGS: Single frontal view of the chest demonstrates the cardiomediastinal silhouette to be within normal li mits. The lungs are clear of alveolar opacities. There is no evidence for pleural effusion. There is no evidence for vascular congestion. There is no acute osseous pathology. IMPRESSION: 1. No acute cardiopulmonary disease. ACT 112: Negative or not required by law. Electronically signed by: Delfino Vazquez M.D. 04/07/2022 7:12 AM
[2022-04-07] MEDS: allopurinoL 300 MG TAB PO SCH (08:27)
[2022-04-07] MEDS: CHOLECALCIFEROL 1,000 UNITS 25 MCG TAB PO SCH (08:28)
[2022-04-07] MEDS: APIXABAN 5 MG TABLET PO SCH ×2 (08:28→20:05)
[2022-04-07] MEDS ORDERED: OPTIRAY 320 125ml IV ONE (09:04)
[2022-04-07] MEDS: METOPROLOL TARTRATE 50 MG TAB PO SCH ×2 (09:13→20:04)
--- NOTE | 2022-04-07 09:16 | CT Scan Report ---
CT ANGIOGRAM OF THE CHEST CLINICAL HISTORY: Pleuritic chest pain. COMPARISON STUDY: Chest x-ray dated 04/06/2022. TECHNIQUE: Following the IV administration of 120 cc of Optiray 320, CT angiogram of the chest was pe rformed from the upper abdomen to the thoracic inlet utilizing the pulmonary embolus protocol. Images are reviewed in the axial, sagittal, and coronal planes. 3-D MIPS images are created and assessed. I V contrast was administered without complication. A dose lowering technique was utilized adhering to the principles of ALARA. CT DOSE: 577.52 mGycm FINDINGS: Thyroid: Imaged portions of the thyroid gland are normal in size and attenuation. Thoracic aorta: There is mild atherosclerotic calcification of the thoracic aorta, which is normal in caliber and demonstrates variant 3-vessel arch anatomy. There is a bovine arch, and the left vertebr al artery arises directly from the thoracic aorta. No dissection is seen. Pulmonary vasculature: The pulmonary trunk is normal in caliber. There are no filling defects identif ied in main, lobar, or segmental pulmonary branches to suggest pulmonary embolus. Heart: The heart is enlarged and without pericardial effusion. Lungs and pleural spaces: Evaluation of the lung parenchyma is degraded by motion artifact. There is no airspace consolidation typical for pneumonia or pleural effusion. Dependent scarring/atelectasis i s noted at both lung bases. The trachea and central airways are clear. Diffuse peribronchial thickeni ng is observed. A 3 mm paramediastinal right upper lobe nodule is seen on image #188. Additional 2 to 3 mm right upper lobe nodules are seen on images #215 and #221. Mediastinum: Subcentimeter mediastinal lymph nodes are not pathologically enlarged by size criteria. Nadiya: Clear. Axillae: There is no axillary lymphadenopathy. Upper abdomen: There are small nonobstructing right upper pole renal calculi. Diverticula are noted i n the partially imaged colon. Skeletal structures: The skeletal structures are osteopenic. Degenerative change is noted in the shou lders and thoracic spine. No lytic or blastic bony lesions are seen. IMPRESSION: 1. There is no evidence of pulmonary embolus in the main, lobar, or segmental pulmonary arteries. 2. There is no airspace consolidation or pleural effusion. 3. Cardiomegaly. 4. Diffuse peribronchial thickening suggests bronchitis/reactive airway disease. Clinical correlation will be required. 5. There are pathologically indeterminant but low suspicion right upper lobe pulmonary nodules measur ing up to 3 mm. If clinically warranted these can be followed as per the Fleischner criteria. See bel ow. 6. Right-sided nephrolithiasis. Please refer to below summary of Fleischner criteria recommendations for follow-up of incidental CT n odules (Hemanth Anderson, Guidelines for management of small pulmonary nodules detected on CT scans: A sta tement from the Fleischner Society, Radiology 237: [phone].) SOLID NODULES Solitary nodule size: <6 mm * low risk patients: no follow-up needed * high risk patients: optional CT at 12 months Solitary nodule size: 6-8 mm * low risk patients: follow-up at 6-12 months, then consider further follow-up at 18-24 months * high risk patients: initial follow-up CT at 6-12 months and then at 18-24 months if no change Solitary nodule size: >8 mm * either low or high risk patients - consider follow-up CT at 3 months, and/or CT-PET, and/or biopsy Multiple nodules size: <6 mm * low risk patients: no routine follow-up * high risk patients: optional CT at 12 months Multiple nodules size: 6-8 mm * low risk patients: follow-up at 3-6 months, then consider further follow-up at 18-24 months * high risk patients: follow-up at 3-6 months, then at 18-24 months if no change Multiple nodules size: >8 mm * low risk patients: follow-up at 3-6 months, then consider further follow-up at 18-24 months * high risk patients: follow-up at 3-6 months, then at 18-24 months if no change Note: newly detected indeterminate nodule in persons 35 years of age or older. * low risk patients: minimal or absent history of smoking and/or other known risk factors * high risk patients: history of smoking or of other known risk factors (e.g. first degree relative with lung cancer, or exposure to asbestos, radon, uranium) * if a nodule up to 8 mm is partly solid or is ground glass further follow-up is required after 24 m onths to exclude possible slow growing adenocarcinoma (ELEANOR) SUBSOLID NODULES Solitary pure ground-glass nodule * nodule size <6 mm - no CT follow-up required * nodule size >=6 mm - follow-up CT at 6-12 months, then every 2 years until 5 years Solitary part-solid nodule * nodule size <6 mm - no CT follow-up required * nodule size >=6 mm - follow-up CT at 3-6 months. If unchanged, and solid component remains <6 mm, then annual follow-up for 5 years Multiple subsolid nodules * nodule size <6 mm - follow-up CT at 3-6 months, consider further follow-up at 2 and 4 years if sta ble * nodule size >=6 mm - follow-up CT at 3-6 months, subsequent management based on the most suspiciou s nodule(s) ACT 112: Negative or not required by law. Electronically signed by: Sebastián Hubbard M.D. 04/07/2022 9:14 AM
[2022-04-07] MEDS ORDERED: SODIUM CHLORIDE 0.9% 1000ML 500 ML IV ONE (09:21)
[2022-04-07] MEDS ORDERED: SODIUM CHLORIDE 0.9% 1000ML 1,000 ML IV ONE ×2 (09:24→13:43)
[2022-04-07] MEDS ORDERED: HYDROmorphone INJ 0.5 MG/0.5 ML SYR IV STA (10:43)
--- NOTE | 2022-04-07 10:58 | Cardiology Consultation ---
Date of Consultation April 07, 2022 Assessment & Plan (1) Atrial fibrillation with rapid ventricular response: He has a long history of atrial fibrillation is believed to have permanent atrial fibrillation. He was admitted to the hospital in January this year with atrial fibrillation and high ventricular rates. At that time his metoprolol dose was increased to 50 mg of tartrate twice daily. Unclear why his rates are slightly higher. Perhaps due to discomfort. Perhaps due to some inflammatory process causing his symptoms. seems that there is a history of mild orthostatic intolerance and low blood pressures associated with more aggressive rate control. Continues to have low blood pressures here in the hospital. I think would be reasonable to start digoxin for better rate control. He will continue systemic anticoagulation indefinitely. (2) Chest pain: I think we can be quite confident that his chest pain is not related to an acute coronary syndrome. No evidence of myocarditis. Some features of his symptoms could be indicative of pericarditis. There is certainly a pleuritic component. Empiric trial of colchicine could be tried. A single dose of Toradol may also be reasonable in the setting of his systemic anticoagulation. Other etiologies would include gastrointestinal, or perhaps pleurisy. Curiously, this seems to be the same symptoms and presentation seen in January of this year. Outside of an empiric trial of colchicine or nonsteroidals, I do not believe there is another likely cardiac etiology or treatment for the symptoms. History of Present Illness Reason for Consultation: Chest pain, atrial fibrillation Requesting Physician: Jolene Attending Physician: Segundo Salcido MD History of Present Illness The patient is a 76-year-old gentleman with a history of permanent atrial fibrillation, nonobstructive coronary disease hypertension and hyperlipidemia who is admitted for symptoms of chest discomfort and atrial fibrillation with associated high ventricular rates. The patient states that on Tuesday he was awaken from sleep with substernal chest discomfort. He described this as sharp in nature. He was able to go back to sleep and by Tuesday morning the symptoms had resolved. However, later in the day the symptoms return. There was some radiation to the left shoulder and the back of his neck. Again he described the symptoms as sharp in there appeared to be a pleuritic component with worsening on deep inspiration. He took some Tylenol and was able to improve his symptoms that evening. The following morning he again woke without symptoms but they developed throughout the course of the day and this time were more intense. As result he presented to the emergency room for evaluation. The patient was admitted to the hospital and January of this year with similar symptoms. He states that his current symptoms are more intense but similar in character. He did not have a neck discomfort at that time according to the patient. When the patient is feeling well he plays pickleball several days per week. He also has a household personal assistant and does some strength training exercises. He states that he has little stamina. He has easy fatigability. However, he did not endorse symptoms of any chest pain with activity or limiting shortness of breath. Allergies Allergy/AdvReac Type Severity Reaction Status Date / Time Penicillins Allergy Unknown RASH Verified 04/07/22 02:22 codeine AdvReac Unknown NAUSEA & Verified 04/07/22 02: VOMITING Home Medications Medication Instructions Recorded Confirmed Type acetaminophen 500 mg tablet 1,000 mg PO UD PRN 11/24/19 04/07/22 History (Tylenol Extra Strength) atorvastatin 40 mg tablet 40 mg PO HS #90 tab 10/27/21 04/07/22 Rx allopurinol 300 mg tablet 150 mg PO QAM #45 tab 10/30/21 04/07/22 Rx tamsulosin 0.4 mg capsule 0.4 mg PO HS #90 cap 11/10/21 04/07/22 Rx apixaban 5 mg tablet 5 mg PO BID #180 tab 12/08/21 04/07/22 Rx hydroxyzine HCl 25 mg tablet 25 mg PO BID PRN #30 tab 01/08/22 04/07/22 Rx cholecalciferol (vitamin D3) 25 75 mcg PO QAM 01/31/22 04/07/22 History mcg (1,000 unit) capsule (Vitamin D3) melatonin 3 mg tablet 5 mg PO HS PRN 01/31/22 04/07/22 History metoprolol tartrate 50 mg tablet 50 mg PO BID #60 tab 02/01/22 04/07/22 Rx peg 3350-electrolytes 236 1 ml PO UD PRN 03/11/22 04/07/22 History gram-22.74 gram-6.74 gram-5.86 gram solution (GaviLyte-G) escitalopram oxalate 20 mg tablet 20 mg PO QPM 04/07/22 04/07/22 History Patient History Medical History Anxiety Benign prostatic hyperplasia CAD (coronary artery disease) Central sleep apnea Chest pain LAST MONTH AL [facility] - ELEVATED HEART RATE - MEDICATED FOR AND METOPROLOL CHANGED FROM SUCCINATE TO TARTRATE. Cigar smoker Complex sleep apnea syndrome MACHINE,"VARIABLE SOMETHING" Elevated serum creatinine STABLE Gout, joint HX Heavy alcohol use History of anesthesia reaction NEEDED A SECOND DOSE OF ANESTHESIA FOR CATARACT SX PER PT - WAS ASLEEP ALMOST THE WHOLE DAY AFTER THAT DR ELDRIDGE History of colonic polyps BENIGN Influenza A DECEMBER OR JANUARY 2022 - NO RESIDUALS Nocturia Non-occlusive coronary artery disease Osteoarthritis Permanent atrial fibrillation DX 20-30 YR AGO, NO HX CARDIOVERSION Skin cancer, basal cell HX Surgical History History of arthroscopic knee surgery History of cardiac cath 20 YR AGO, NO STENT(S) History of cataract surgery LEFT History of colonoscopy History of revision of total replacement of right hip joint History of vocal cord polypectomy Hx of endoscopic sinus surgery X2 S/P appendectomy S/P bilateral hip replacements S/P vasectomy Family History Mother Heart disease Hypertension Stroke Other Myocardial infarction Denies family history of Ovarian cancer Prostate cancer Breast cancer Colorectal cancer Social History Smoking Status: Current every day smoker Tobacco Type: Cigars Cigarettes Per Day: ABOUT ONE A DAY (ADVISED NPO); Second Hand Exposure: No; Do You Dip or Chew Tobacco: No; Tobacco Cessation Education Requested by Patient: No Hx Alcohol Use: Yes Alcohol type: beer, wine and hard liquor Alcohol Intake Frequency: 4 or More x per/Week Alcohol Intake Frequency Comment: 20 per week Hx Substance Use: No Preferred Language: Setswana Communication Ability: Effective Visual Impairment: Limited Hearing Ability: Hard of Hearing Early Breastfeeding Care Specialist Required: No Beliefs That Will Affect Care: None marital status: Current Living Situation: Spouse current occupational status: 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 No lower extremity edema. Some gravelly voice. No difficulty swallowing. No frequent indigestion. Physical Exam Physical Exam: The patient is alert and oriented. Mood and affect appeared normal. He answered all questions appropriately. HEENT: Pupils are equal and reactive to light and accommodation. Extraocular movements are intact. The sclerae are anicteric. Neuro: Cranial nerves intact Lungs: Clear to auscultation bilaterally. He has good air movement without use of accessory muscles. No rales wheezes or rhonchi. Cardiac: Heart demonstrates an irregular rhythm with elevated heart rate Normal S1 and S2. No murmurs on examination. Pulses: The patient has palpable radial pulses bilaterally that are equal in intensity Extremities: There was no evidence of hypoperfusion. There is no cyanosis or clubbing. There is no edema. Skin: I did not appreciate any rashes on examination today. Results & Data ([facility]) Vital Signs (Past 12 Hours) Vital Signs Temp Pulse Pulse Resp BP BP BP 04/07/22 10:39 102 H 21 105/62 04/07/22 10:13 95 H 21 89/89 L 04/07/22 10:09 114 H 23 89/59 L 04/07/22 09:08 121 H 18 84/62 L 04/07/22 08:27 115 H 22 90/55 L 04/07/22 08:26 114 H 13 82/64 L 04/07/22 06:00 37.2 C 113 H 18 100/77 04/07/22 05:21 37.2 C 97 H 20 87/49 L 04/07/22 04:52 102 H 18 107/68 04/07/22 04:00 108 H 18 96/63 L 04/07/22 02:00 117 H 18 115/74 04/07/22 00:44 105 H 16 119/70 04/06/22 22:59 04/06/22 22:56 101 H 101 H 20 108/73 Pulse Ox Pulse Ox 04/07/22 10:39 91 04/07/22 10:13 93 04/07/22 10:09 95 04/07/22 09:08 93 04/07/22 08:27 93 04/07/22 08:26 94 04/07/22 06:00 89 L 04/07/22 05:21 92 91 04/07/22 04:52 93 04/07/22 04:00 94 04/07/22 02:00 95 04/07/22 00:44 95 04/06/22 22:59 95 04/06/22 22:56 100 Laboratory Results Abnormal Lab Results 04/06/22 04/06/22 04/06/22 22:57 22:57 22:57 WBC 8.58 RBC 4.46 L Hgb 15.3 Hct 42.6 MCV 95.5 MCH 34.3 H MCHC 35.9 RDW Std Deviation 45.7 RDW Coeff of Stefany 13.1 Plt Count 150 MPV 10.5 H Immature Gran % (Auto) 0.2 Neut % (Auto) 67.7 Lymph % (Auto) 19.2 Garrett % (Auto) 11.9 Eos % (Auto) 0.9 Baso % (Auto) 0.1 Neut # (Auto) 5.80 Lymph # (Auto) 1.65 Garrett # (Auto) 1.02 H Eos # (Auto) 0.08 Baso # (Auto) 0.01 Immature Gran # (Auto) 0.02 PT 10.7 INR 1.0 APTT 30.6 PTT Ratio 1.1 D-Dimer Sodium Cancelled Potassium Cancelled Chloride Cancelled Carbon Dioxide Cancelled Anion Gap Cancelled BUN Cancelled Creatinine Cancelled Est Cr Clr Drug Dosing Cancelled Est GFR ( Amer) Cancelled Est GFR (Non-Af Amer) Cancelled BUN/Creatinine Ratio Cancelled Glucose Cancelled Calcium Cancelled Magnesium Total Bilirubin Cancelled AST Cancelled ALT Cancelled Alkaline Phosphatase Cancelled Troponin I High Sens 7.2 Total Protein Cancelled Albumin Cancelled Globulin Cancelled Albumin/Globulin Ratio Cancelled Lipase Cancelled Nasal Screen MRSA (PCR) SARS-CoV-2, RNA, NAAT 04/07/22 04/07/22 04/07/22 00:06 01:08 01:08 WBC RBC Hgb Hct MCV MCH MCHC RDW Std Deviation RDW Coeff of Stefany Plt Count MPV Immature Gran % (Auto) Neut % (Auto) Lymph % (Auto) Garrett % (Auto) Eos % (Auto) Baso % (Auto) Neut # (Auto) Lymph # (Auto) Garrett # (Auto) Eos # (Auto) Baso # (Auto) Immature Gran # (Auto) PT INR APTT PTT Ratio D-Dimer Sodium 137 Potassium 4.1 Chloride 105 Carbon Dioxide 25 Anion Gap 7 BUN 22 Creatinine 1.30 Est Cr Clr Drug Dosing 49.9 Est GFR ( Amer) 61.4 Est GFR (Non-Af Amer) 53.0 BUN/Creatinine Ratio 16.9 Glucose 103 H Calcium 9.2 Magnesium 2.0 Total Bilirubin 1.2 H AST 17 ALT 25 Alkaline Phosphatase 111 H Troponin I High Sens 7.0 Total Protein 6.7 Albumin 4.1 Globulin 2.6 Albumin/Globulin Ratio 1.6 Lipase 45 Nasal Screen MRSA (PCR) SARS-CoV-2, RNA, NAAT 04/07/22 04/07/22 04/07/22 02:46 04:05 06:00 WBC RBC Hgb Hct MCV MCH MCHC RDW Std Deviation RDW Coeff of Stefany Plt Count MPV Immature Gran % (Auto) Neut % (Auto) Lymph % (Auto) Garrett % (Auto) Eos % (Auto) Baso % (Auto) Neut # (Auto) Lymph # (Auto) Garrett # (Auto) Eos # (Auto) Baso # (Auto) Immature Gran # (Auto) PT INR APTT PTT Ratio D-Dimer 1480 H* Sodium Potassium Chloride Carbon Dioxide Anion Gap BUN Creatinine Est Cr Clr Drug Dosing Est GFR ( Amer) Est GFR (Non-Af Amer) BUN/Creatinine Ratio Glucose Calcium Magnesium Total Bilirubin AST ALT Alkaline Phosphatase Troponin I High Sens Total Protein Albumin Globulin Albumin/Globulin Ratio Lipase Nasal Screen MRSA (PCR) Negative SARS-CoV-2, RNA, NAAT NEGATIVE 04/07/22 06:48 WBC RBC Hgb Hct MCV MCH MCHC RDW Std Deviation RDW Coeff of Stefany Plt Count MPV Immature Gran % (Auto) Neut % (Auto) Lymph % (Auto) Garrett % (Auto) Eos % (Auto) Baso % (Auto) Neut # (Auto) Lymph # (Auto) Garrett # (Auto) Eos # (Auto) Baso # (Auto) Immature Gran # (Auto) PT INR APTT PTT Ratio D-Dimer Sodium Potassium Chloride Carbon Dioxide Anion Gap BUN Creatinine Est Cr Clr Drug Dosing Est GFR ( Amer) Est GFR (Non-Af Amer) BUN/Creatinine Ratio Glucose Calcium Magnesium Total Bilirubin AST ALT Alkaline Phosphatase Troponin I High Sens 6.5 Total Protein Albumin Globulin Albumin/Globulin Ratio Lipase Nasal Screen MRSA (PCR) SARS-CoV-2, RNA, NAAT Diagnostic Findings A chest CT is performed the time admission which did not reveal any evidence of pulmonary embolus. Chest x-ray was obtained the time admission which did not reveal any evidence of acute cardiopulmonary disease Echocardiogram performed 02/01/2022: Normal LV systolic function with ejection fraction of 50-55%. Moderate LVH. Severe left atrial dilation. Mild right atrial dilation. PG Care Time/CCT Total # of Minutes Spent Total Time Spent with Patient: Total time spent is greater than 50% in coordination of care (as documented) at patient's floor/unit and/or counseling patient: Coding Level of Care Code INT OBSERVATION CARE 70M LVL 3 Diagnoses Atrial fibrillation with rapid ventricular response I48.91 Chest pain R07.9 Chest pain type: unspecified (1) Chest pain Chest pain type: unspecified Qualified Code(s): R07.9 - Chest pain, unspecified
[2022-04-07] MEDS ORDERED: DIGOXIN 250 MCG in SYRINGE 9 ML IV ONE ×2 (11:16→14:45)
--- NOTE | 2022-04-07 11:51 | Electrocardiogram Report ---
Test Reason : Blood Pressure : / mmHG Vent. Rate : 111 BPM Atrial Rate : 110 BPM P-R Int : 000 ms QRS Dur : 096 ms QT Int : 336 ms P-R-T Axes : 000 038 014 degrees QTc Int : 456 ms Atrial fibrillation with rapid ventricular response with premature ventricular or aberrantly conducte d complexes Nonspecific ST abnormality Abnormal ECG When compared with ECG of 01-FEB-2022 05:56, No significant change was found Confirmed by Edwin Jasso ([id number]) on 04/07/2022 11:51:23 AM Referred By: REFERRED SELF Confirmed By:Leonidas Jasso
--- NOTE | 2022-04-07 11:57 | Electrocardiogram Report ---
Test Reason : Blood Pressure : / mmHG Vent. Rate : 110 BPM Atrial Rate : 089 BPM P-R Int : 000 ms QRS Dur : 092 ms QT Int : 344 ms P-R-T Axes : 000 016 021 degrees QTc Int : 465 ms Atrial fibrillation with rapid ventricular response Low voltage QRS Nonspecific ST and T wave abnormality Abnormal ECG When compared with ECG of 06-APR-2022 22:52, (unconfirmed) No significant change was found Confirmed by Edwin Jasso ([id number]) on 04/07/2022 11:57:30 AM Referred By: REFERRED SELF Confirmed By:Leonidas Jasso
[2022-04-07] MEDS ORDERED: KETOROLAC TROMETHAMINE 15 MG/ML VIAL IV ONE ×2 (12:22→20:59)
--- NOTE | 2022-04-07 19:51 | Billing Data ---
Date of Service April 07, 2022 Coding Level of Care Code 49077 Initial Inpt Care Lvl 3
[2022-04-07] MEDS ORDERED: TAMSULOSIN HCL 0.4 MG CAP PO SCH (21:00)
[2022-04-07] MEDS ORDERED: ATORVASTATIN 40 MG TAB PO SCH (21:00)
[2022-04-07] MEDS ORDERED: ESCITALOPRAM OXALATE 20 MG TAB PO SCH (21:00)
[2022-04-08 06:22] LABS: Basophils # (auto) 0.01 K/uL (0-0.2); Basophils % (auto) 0.1 %; Eosinophils # (auto) 0.09 K/uL (0-0.5); Hematocrit (blood only) 39.3 % (42-52); Hemoglobin 13.8 g/dL (14.0-18.0); Immature Granulocytes # (auto) 0.01 K/uL (0.00-0.02); Immature Granulocytes % (auto) 0.1 %; Lymphocytes # (auto) 1.39 K/uL (1.2-3.4); Lymphocytes % (auto) 15.2 %; Mean Corpuscular Hemoglobin 33.8 pg (25-34); Mean Corpuscular Hgb Conc 35.1 g/dL (32-36); Mean Corpuscular Volume 96.3 fL (80-100); Mean Platelet Volume 10.1 fL (7.4-10.4); Monocytes # (auto) 0.85 K/uL (0.11-0.59); Monocytes % (auto) 9.3 %; Neutrophils % (auto) 74.3 %; Platelet Count 124 K/uL (130-400); RDW Coefficient of Variation 13.3 % (11.5-14.5); RDW Standard Deviation 46.5 fL (36.4-46.3); Red Blood Count 4.08 M/uL (4.7-6.1); White Blood Count 9.15 K/uL (4.8-10.8)
[2022-04-08 06:40] LABS: Albumin Globulin Ratio 1.3 (0.9-2); Albumin Level 3.6 gm/dl (3.4-5.0); BUN Creatinine Ratio 13.7 (10-20); Bilirubin,Total 1.6 mg/dl (0.2-1.0); Calcium 8.7 mg/dl (8.5-10.1); Creatinine Clr Calc Pharmacy 47.1 ml/min; Est GFR (African American) 56.7 ml/min; Est GFR (Non-African American) 48.9 ml/min; Globulin 2.7 gm/dl (2.5-4.0); Potassium 4.2 mmol/L (3.5-5.1); Total Protein 6.3 gm/dl (6.0-8.3)
[2022-04-08] MEDS: allopurinoL 300 MG TAB PO SCH (09:24)
[2022-04-08] MEDS: CHOLECALCIFEROL 1,000 UNITS 25 MCG TAB PO SCH (09:25)
[2022-04-08] MEDS: APIXABAN 5 MG TABLET PO SCH (09:25)
--- NOTE | 2022-04-08 09:34 | Discharge Summary ---
Date of Service April 08, 2022 Admission HPI Per Admitting Provider Zack Ramos is a 76-year-old male with past medical history of atrial fibrillation on Eliquis, hypertension, hyperlipidemia, depression/anxiety, ISABEL on CPAP, CKD stage III, alcohol abuse, BPH, gout who presents due to substernal and left-sided chest pain radiating to the neck. He reports the pain started on Tuesday and has been coming and going intermittently ever since, with doses of Tylenol being helpful at times. Tonight he felt that the pain was more bothersome and he could not sleep with it, so he decided to come into the ED. He rates the pain at a 2 out of 10 and states it is worse with inspiration. He mentions, with regards to his neck, that he has had neck issues for some time. Earlier this week worked out with a personal injury legal assistant and was doing some exercises with bands with which she felt some right-sided neck discomfort, and has felt some neck tightness since then. He is able to feel some tenderness and tightness when palpating his neck, but unable to recreate chest pain when palpating. In the ED, patient was found to be in atrial fibrillation with heart rate up to 132 on arrival and then fluctuating between low 100s to 110s. He was given aspirin 324 mg x 1, GI cocktail, Zofran, and morphine 4 mg. He did not have resolution of his chest discomfort with this. He was then given a dose of diltiazem 10 mg x 1. Lab work showed normal blood counts, normal electrolytes with potassium of 4.1 and magnesium of 2.0. Troponins negative x2. At the time of my evaluation in the room, patient's heart rate fluctuates between mid 70s to low 90s on monitor. He denied shortness of breath, cough, fever, chills, abdominal pain, nausea, vomiting, headache, dizziness, vision changes, leg pain/swelling. Admission Exam Per Admitting Provider GENERAL: A&Ox3. NAD. HEENT: PERRL, EOMI. Moist mucous membranes. NECK: No JVD. No lymphadenopathy. Bilateral tenderness to palpation posteriorly. CHEST/LUNGS: CTAB A/P. No crackles, wheezes, rales, rhonchi. No pain on palpation of chest. HEART: Irregularly irregular. No m/g/r. No carotid bruits. ABDOMEN: NT/ND, soft. BS+ x4 EXTREMITIES: No cyanosis, no clubbing, no edema SKIN: Warm and dry. No rashes or lesions. PSYCHIATRIC: Euthymic affect, no SI, no pressured speech, no hallucinations NEUROLOGIC: No FND. CN II-XII grossly intact. Principal Diagnosis Atrial Fibrillation with Rapid Ventricular Response Discharge Exam General: A&Ox3. NAD. Cooperative. HEENT: Atraumatic, normocephalic. Pulm: CTAB A&P. -wheezes, -rales, -rhonchi. Symmetrical chest rise. No increase work of breathing. No respiratory distress. Cardiac: tachycardic rate, irregularly irregular rhythm, -mrg. Radial pulses intact and symmetrical. No LE edema. Chest: minimal tenderness to palpation of costochondral joints - improved Abdominal: soft, non-tender, non-distended, BS x 4 Skin: warm, dry, no rash Discharge Data Allergies Allergy/AdvReac Type Severity Reaction Status Date / Time Penicillins Allergy Unknown RASH Verified 04/07/22 02:22 codeine AdvReac Unknown NAUSEA & Verified 04/07/22 02:22 VOMITING Consultations 04/07/22 02:27 ED Decision to Admit Stat 04/07/22 05:21 Consult Cardiology Routine Ordered Studies 04/07/22 06:30 CT angio chest PE protocol Stat Hospital Course (1) Atrial fibrillation with rapid ventricular response: Zack Ramos is a 76-year-old male with PMHx significant for permanent atrial fibrillation (on Eliquis and Lopressor), hypertension, hyperlipidemia, depression/anxiety, ISABEL on CPAP, CKD stage III, mild alcohol use disorder, BPH, and gout who presented to [facility] ED on 04/06 for substernal chest pain; found to be in a-fib with RVR. Atrial Fibrillation with Rapid Ventricular Response, RVR resolved; Hypotension, resolved H/o permanent a-fib with recent [facility] hospitalization in 01/2022. Presented with a-fib RVR, and is taking Eliquis/Lopressor as prescribed. Unclear trigger but may be 2/2 to chest pain as well as dental pain in context of recent dental procedure. - Received diltiazem 10 mg x 1 in ED rates remained in 110s while supine and 140s with sitting/standing, and BP down to 80s/40s likely due to additional dose - remained hypotensive and tachycardic despite 2L NSS boluses - Cardiology consulted - appreciate recs - started Digoxin - with 250mcg dose x2 on 04/07 in the afternoon, with improvement in HR to 90s at rest - continue with Digoxin 250mcg PO daily after discharge - patient will need Digoxin level ~3-5 days after discharge - per PCP - continue metoprolol tartrate 50mg PO BID - f/u with PCP and Cardiology Atypical Chest Pain, resolving Substernal chest pain that is inspiratory/pleuritic in nature with worsening pain on palpation. EKG without ST/T changes and hsTroponin negative x3. Suspect this to be MSK chest pain such as costochondritis. A-fib RVR may be playing a role as well. Do not suspect ACS. - Note: patient had similar chest pain on previous a-fib admission without ACS at that time either - d-dimer elevated at 1480 - CTA chest without evidence for PE/dissection - s/p Aspirin 324mg x1 in ED - chest pain has responded well to Toradol - Cardiology consulted as stated above HTN: Continue Lopressor as stated above Gout: Continue home allopurinol Anxiety: Continue Lexapro and hydroxyzine as needed Benign prostatic hyperplasia: Continue home tamsulosin Hyperlipidemia: Continue statin (2) Chest pain: (3) Hyperlipidemia LDL goal <70: (4) Obstructive sleep apnea: (5) HTN (hypertension): (6) Benign prostatic hyperplasia: (7) Anxiety: Total Time Total Time Spent Total Time Spent (In Minutes): 30 minutes Discharge Plan Discharge Items Patient Disposition: Home - Self-Care Reason For Visit: CP, AFIB W/RVR Discharge Diagnosis: Atrial Fibrillation with Rapid Ventricular Responsive Activity: Per Instructions section Non-emergency contact: Primary Care Provider and [facility] Agent Call non-emergency contact if: you have any medication questions and your symptoms worsen Follow-up/Referrals: Loyd Boone MD [Physician] - (f/u in 2-3 weeks please) Mago Hui MD [Primary Care Provider] - Diet: Heart Healthy Addtl Attending Provider Instructions: You were admitted to [facility] from 04/07 to 04/08 for chest pain and for uncontrolled atrial fibrillation. Your chest pain is most likely due to a muscle/joint strain in your chest and improved with pain medications. This pain may have led to your uncontrolled atrial fibrillation. Your heart rate improved with a medication called Digoxin. You will be discharged on 04/08 in improved, stable condition. You will continue taking Digoxin once per day. Please follow up with your PCP within 5-7 days of discharge. You will need to get repeat blood work to check the Digoxin level at that time. Continue to take your other home medications as scheduled. Please do not hesitate to take Ibuprofen for further chest pain. We hope you continue to feel well. Pending Studies at Discharge: No Stand-Alone Forms: [facility], Smoking Cessation Medications and DC Order Prescriptions: New digoxin 125 mcg (0.125 mg) tablet 125 mcg PO DAILY Qty: 30 RF: 1 Continued atorvastatin 40 mg tablet 40 mg PO HS Qty: 90 RF: 1 allopurinol 300 mg tablet 150 mg PO QAM Qty: 45 RF: 3 tamsulosin 0.4 mg capsule 0.4 mg PO HS Qty: 90 RF: 3 apixaban 5 mg tablet 5 mg PO BID Qty: 180 RF: 3 hydroxyzine HCl 25 mg tablet 25 mg PO BID PRN (Reason: anxiety) Qty: 30 RF: 2 acetaminophen [Tylenol Extra Strength] 500 mg Tablet 1,000 mg PO UD PRN (Reason: Pain) RF: 0 escitalopram oxalate 20 mg tablet 20 mg PO QPM RF: 0 melatonin 3 mg Tablet 5 mg PO HS PRN (Reason: Sleep) RF: 0 cholecalciferol (vitamin D3) [Vitamin D3] 25 mcg (1,000 unit) Capsule 75 mcg PO QAM RF: 0 metoprolol tartrate 50 mg Tablet 50 mg PO BID Qty: 60 RF: 4 peg 3350-electrolytes [GaviLyte-G] 236-22.74-6.74 -5.86 gram Recon Soln 1 ml PO UD PRN (Reason: COLONOSCOPY PREP) RF: 0 Discharge Orders: Discharge Order (Routine); Ordered 04/08/22 Ordered By: Clemente Navarro Admission Data Admit Date/Time: 04/07/22 03:27 Attending Provider: Segundo Salcido Admit Provider: Angel Fernández Primary Care Provider: Mago Hui Other Providers: Holli Diaz Anthony F. Other Interventions: Discharge Summary Assessment (RN) Last Done: 04/08/22 12:41 Supervising Physician Co-Signing Physician Notes Attending attestation Pt seen and examined in concert with Dr. Navarro. In agreement with the documented findings as noted in the resident documentation with any exceptions or additions as noted here. Resolution of presenting chest pain complaint even with deep inspiration or direct pressure. VS reviewed. On examination, S1/S2 nl mildly tachy, irregular no MCG. CTAB. Abd NT/ND BS+ve Atrial fibrillation with RVR with hypotension - cardiology consult - started on digoxin with improvement. Continue dig and metoprolol with short term cardiology follow up Atypical chest pain - likely MSK - per cardiology recommendations, short course of 400mg ibuprofen for recurrence with significant GI and cardiac precautions Else see resident documentation as noted. Total attending physician time spent on this patient's care on the day of discharge: 45 minutes. Resident Activity Tracking Resident Involvement: Resident Care Provided Care Provided: Adult Hospital Medicine
--- NOTE | 2022-04-08 09:43 | Cardiology Progress Note ---
Date of Service April 08, 2022 Assessment & Plan (1) Pleuritic chest pain: (2) Atrial fibrillation with rapid ventricular response: Plan: Etiology of pleuritic chest pain uncertain, no evidence of pulmonary embolism on chest CT, no ST changes or positional component to suggest pericarditis. Pain did resolve after a dose of Toradol, therefore recommended that should it recur he would take ibuprofen 400 mg 3 times daily for just 2 days (no longer, given anticoagulation with apixaban). His ventricular response to atrial fibrillation is actually fairly appropriate for an individual and pain, digoxin may help further prevent tachycardic response and should be continued (could use 125 mcg daily given his borderline renal insufficiency). Patient is doing well and is currently symptom-free with reasonable ventricular rate control, okay for discharge home with cardiology follow-up in 2 to 3 weeks. Thank you for allowing me to participate in the care of of this patient. Admission and Anticipated Discharge Date Admission Date: April 07, 2022 Subjective Patient is doing well, he notes that his chest discomfort resolved and has not recurred (temporally related to receiving Toradol dose). No dyspnea, subjective palpitations, or other complaints. When he did have chest discomfort yesterday he noted that it radiated to his neck and head and was worse on deep inspiration, did not change when lying back. Blood pressure chronically is borderline low, resulting in at least 1 held dose of his beta-gina. Pulse initially in the 110 bpm range, now in the 90 bpm range with brief periods of about 100 bpm. Physical Exam Physical Exam: No distress. BP low normal (110/54 mmHg). Pulse 90 bpm and irregular. Skin: no ecchymoses or generalized lesions. HEENT: unremarkable. Neck: no JVD or carotid bruits. Lungs: clear. Cardiac: irregular rhythm, no murmur or gallop. Abdomen: benign. Extremities: no edema, pulses intact. Neurologic: normal affect, nonfocal. Results & Data ([facility]) Vital Signs (Past 12 Hours) Vital Signs Temp Pulse Pulse Resp BP BP Pulse Ox 04/08/22 04:00 98.1 F 90 89 14 110/54 L 91 04/08/22 03:38 98 H 14 110/54 L 92 04/08/22 03:00 83 14 93 04/08/22 02:00 86 23 94 04/08/22 01:00 83 19 94 04/08/22 00:00 88 19 104/74 89 L 04/07/22 23:00 98.2 F 84 86 22 104/74 93 04/07/22 22:00 90 21 92 Laboratory Results Multiple troponins were negative. Normal electrolytes, BUN 19, creatinine 1.39. Diagnostic Findings ECG this morning showed atrial fibrillation with controlled ventricular sponsor 94 bpm, nonspecific global T wave flattening with isoelectric ST segments. No change overnight. PG Care Time/CCT Total # of Minutes Spent Total Time Spent with Patient: Total time spent is greater than 50% in coordination of care (as documented) at patient's floor/unit and/or counseling patient: Coding Level of Care Code 16782 Subseq Hosp Care Lvl 3 Diagnoses Pleuritic chest pain R07.81 Atrial fibrillation with rapid ventricular response I48.91
[2022-04-08] MEDS: METOPROLOL TARTRATE 50 MG TAB PO SCH (10:05)
--- NOTE | 2022-04-08 18:19 | Electrocardiogram Report ---
Test Reason : Blood Pressure : / mmHG Vent. Rate : 094 BPM Atrial Rate : 441 BPM P-R Int : 000 ms QRS Dur : 090 ms QT Int : 348 ms P-R-T Axes : 000 014 011 degrees QTc Int : 435 ms Atrial fibrillation Low voltage QRS Nonspecific ST and T wave abnormality Abnormal ECG When compared with ECG of 07-APR-2022 06:48, No significant change was found Confirmed by Edwin Jasso ([id number]) on 04/08/2022 6:18:44 PM Referred By: REFERRED SELF Confirmed By:Leonidas Jasso
== END 2022-04-08 13:29 | disposition home or self-care (01) | DRG 310 ==
LOC: ED 22:44 → SUATTDRO 04-07 03:27 → INTOOBSV 04-07 03:27 → 1E 04-07 03:27